=== PATIENT | male | born 1945 | race African-American/Black ===

== ENCOUNTER 2017-12-30 23:06 | Inpatient (IN) | payer MEDICARE, MEDICAID ==
[~2017-12-30] VITALS: Ht 170.2 cm; Wt 66.2 kg
[2017-12-30] MEDS ORDERED: Ipratropium 0.02% Inh Soln 2.5ml UD HHN ONE (23:30)
[2017-12-30] MEDS ORDERED: Albuterol ud Inhalation HHN ONE (23:30)
[2017-12-30] MEDS ORDERED: Solu-MEDROL 125mg Inj IVP ONE (23:30)
[2017-12-30 23:40] VITALS: BP 146/96
[2017-12-30 23:55] LABS: BASOPHILS % (AUTO) 2.6 % (0.0-2.0); EOSINOPHILS % (AUTO) 6.3 % (0.0-3.0); HEMATOCRIT 43.4 % (42.0-52.0); HEMOGLOBIN 13.1 G/DL (14.2-18.0); LYMPHOCYTES % (AUTO) 21.3 % (20.0-45.0); MEAN CORPUSCULAR VOLUME 80 FL (80-99); MONOCYTES % (AUTO) 9.4 % (1.0-10.0); NEUTROPHILS % (AUTO) 60.3 % (45.0-75.0); PLATELET COUNT 163 K/UL (150-450); RED CELL DISTRIBUTION WIDTH 12.6 % (11.6-14.8); WHITE BLOOD COUNT 7.4 K/UL (4.8-10.8)
[2017-12-31] MEDS ORDERED: MULTIVITAMINS1 EAC8 ORAL (00:37)
[2017-12-31] MEDS ORDERED: ABILIFY2 MG ORAL (00:37)
[2017-12-31] MEDS ORDERED: FLEET ENEMA133 ML RECTAL (00:37)
[2017-12-31] MEDS ORDERED: BENZTROPINE ME0.5 MG PO (00:37)
[2017-12-31] MEDS ORDERED: ACETAMINOPHEN325 M1 ORAL (00:37)
[2017-12-31] MEDS ORDERED: LAMICTAL25 MG ORAL (00:37)
[2017-12-31] MEDS ORDERED: MILK OF MA400 MG/51 ORAL (00:37)
[2017-12-31] MEDS ORDERED: CATAPRES0.1 MG ORAL (00:37)
[2017-12-31 00:54] LABS: ANION GAP 4 mmol/L (5-15); BLOOD UREA NITROGEN 15 mg/dL (7-18); CALCIUM 9.1 MG/DL (8.5-10.1); CARBON DIOXIDE 30 MMOL/L (21-32); CHLORIDE 101 MMOL/L (98-107); CREATININE 0.9 MG/DL (0.55-1.30); POTASSIUM 4.7 MMOL/L (3.5-5.1); SODIUM 135 MMOL/L (136-145)
[2017-12-31 01:05] LABS: ALANINE AMINOTRANSFERASE 24 U/L (12-78); ALBUMIN 3.3 G/DL (3.4-5.0); ALBUMIN/GLOBULIN RATIO 0.8 (1.0-2.7); ALKALINE PHOSPHATASE 122 U/L (46-116); ASPARTATE AMINO TRANSFERASE 22 U/L (15-37); BILIRUBIN,TOTAL 0.3 MG/DL (0.2-1.0); CREATINE KINASE 237 U/L (26-308)
[2017-12-31 01:28] LABS: APPEARANCE,URINE CLEAR; BILIRUBIN, URINE NEGATIVE (NEGATIVE); COLOR,URINE PALE YELLOW; GLUCOSE, URINE (UA) NEGATIVE (NEGATIVE); KETONES,URINE NEGATIVE (NEGATIVE); LEUKOCYTE ESTERASE ,URINE 1+ (NEGATIVE); NITRITE,URINE NEGATIVE (NEGATIVE); PH,URINE 7 (4.5-8.0); PROTEIN,URINE NEGATIVE (NEGATIVE); UROBILINOGEN,URINE NORMAL MG/DL (0.0-1.0)
--- NOTE | 2017-12-31 01:34 | Emergency Room Report ---
History of Present Illness General Chief Complaint: Upper Respiratory Illness Source: Patient, Medical Record, EMS Present Illness HPI Patient was sent in for evaluation of lung mass. He is a poor historian. Apparently, due to prior x-rays, a CT guided biopsy is indicated. The patient denies chest pain, back pain, productive cough. He has recent hoarseness and poor appetite, but denies weight loss. No fevers, chills, NVD. Denies calf pain or swelling. Prior smoker. Allergies: Coded Allergies: No Known Allergies (Unverified , 12/30/17) Patient History Past Medical History: see triage record Social History: Denies: smoking - prior Social History Narrative assisted living Reviewed Nursing Documentation: PMH: Agreed; PSxH: Agreed Nursing Documentation-PMH Hx Hypertension: Yes Hx COPD: Yes - malignant neoplasm of unspecified part of lung Review of Systems All Other Systems: limited Physical Exam Vital Signs Date Time Temp Pulse Resp B/P (MAP) Pulse Ox O2 Delivery O2 Flow Rate FiO2 12/30/17 23:07 98.7 70 18 146/96 95 Room Air 98.8 12/30/17 23:45 21 Sp02 EP Interpretation: reviewed, normal General Appearance: no apparent distress, GCS 15 Head: normocephalic, atraumatic Eyes: bilateral eye normal inspection, bilateral eye PERRL ENT: moist mucus membranes, other - hoarseness Neck: supple Respiratory: lungs clear, normal breath sounds, wheezing - minimal end exp Cardiovascular #1: regular rate, rhythm Cardiovascular #2: 2+ radial (R) Gastrointestinal: normal inspection, normal bowel sounds, non tender, no mass, non-distended Musculoskeletal: back normal, gait/station normal, normal range of motion Neurologic: alert, oriented - X2 Psychiatric: mood/affect normal Skin: normal inspection, warm/dry Medical Decision Making Diagnostic Impression: Primary Impression: Mass of left lung Additional Impressions: Bronchospasm Encephalopathy ER Course Patient with h/o lung mass. DDx: cancer, pneumonia, pneumothorax amongst others. Patient in no respiratory distress, however has hoarseness suggesting possible Pancoast tumor with recurrent laryngeal involvement. No Raine's sign. Evaluation with EKG, labs and CXR. As consideration for biopsy, will hold off on CT tonight. Treatment with solu-medrol and breathing treatments. EKG no injury. CXR with large mass MITALI. Labs with normal WBC (eosinophilia). CMP basically unremarkable (slightly low sodium). Improved with breathing treatments. Patient discussed with Dr. Dixon. The patient is admitted to Dr. Cabrera. The plan is for CT-guided lung biopsy tomorrow. The patient pulled out his IV. He is refusing that we start another IV. At this point there is no emergent condition to have an IV started. One should be inserted prior to the biopsy. The patient is tolerating oral meds at this time. According to the assisted living where he is he suffers from confusion at times with h/o schizophrenia. This may necessitate assessment from a director of social work or psychiatry. Laboratory Tests Test 12/30/17 23:30 12/31/17 01:00 White Blood Count 7.4 K/UL (4.8-10.8) Red Blood Count 5.40 M/UL (4.70-6.10) Hemoglobin 13.1 G/DL (14.2-18.0) L Hematocrit 43.4 % (42.0-52.0) Mean Corpuscular Volume 80 FL (80-99) Mean Corpuscular Hemoglobin 24.3 PG (27.0-31.0) L Mean Corpuscular Hemoglobin Concent 30.2 G/DL (32.0-36.0) L Red Cell Distribution Width 12.6 % (11.6-14.8) Platelet Count 163 K/UL (150-450) Mean Platelet Volume 10.0 FL (6.5-10.1) Neutrophils (%) (Auto) 60.3 % (45.0-75.0) Lymphocytes (%) (Auto) 21.3 % (20.0-45.0) Monocytes (%) (Auto) 9.4 % (1.0-10.0) Eosinophils (%) (Auto) 6.3 % (0.0-3.0) H Basophils (%) (Auto) 2.6 % (0.0-2.0) H Prothrombin Time 10.5 SEC (9.30-11.50) Prothrombin Time INR 1.0 (0.9-1.1) PTT 28 SEC (23-33) Sodium Level 135 MMOL/L (136-145) L Potassium Level 4.7 MMOL/L (3.5-5.1) Chloride Level 101 MMOL/L (98-107) Carbon Dioxide Level 30 MMOL/L (21-32) Anion Gap 4 mmol/L (5-15) L Blood Urea Nitrogen 15 mg/dL (7-18) Creatinine 0.9 MG/DL (0.55-1.30) Estimate Glomerular Filtration Rate mL/min (>60) Glucose Level 95 MG/DL (74-106) Lactic Acid Level 0.80 mmol/L (0.66-2.22) Calcium Level 9.1 MG/DL (8.5-10.1) Total Bilirubin 0.3 MG/DL (0.2-1.0) Aspartate Amino Transferase (AST) 22 U/L (15-37) Alanine Aminotransferase (ALT) 24 U/L (12-78) Alkaline Phosphatase 122 U/L (46-116) H Total Creatine Kinase 237 U/L (26-308) Troponin I 0.000 ng/mL (0.000-0.056) Pro-B-Type Natriuretic Peptide 42 pg/mL (0-125) Total Protein 7.6 G/DL (6.4-8.2) Albumin 3.3 G/DL (3.4-5.0) L Globulin 4.3 g/dL Albumin/Globulin Ratio 0.8 (1.0-2.7) L Urine Color Pale yellow Urine Appearance Clear Urine pH 7 (4.5-8.0) Urine Specific [place] 1.010 (1.005-1.035) Urine Protein Negative (NEGATIVE) Urine Glucose (UA) Negative (NEGATIVE) Urine Ketones Negative (NEGATIVE) Urine Occult Blood Negative (NEGATIVE) Urine Nitrite Negative (NEGATIVE) Urine Bilirubin Negative (NEGATIVE) Urine Urobilinogen Normal MG/DL (0.0-1.0) Urine Leukocyte Esterase 1+ (NEGATIVE) H Urine RBC 0-2 /HPF (0 - 0) H Urine WBC 0-2 /HPF (0 - 0) Urine Squamous Epithelial Cells None /LPF (NONE/OCC) Urine Bacteria None /HPF (NONE) EKG Diagnostic Results Rate: normal Rhythm: NSR ST Segments: no acute changes - RBBB Rhythm Strip Diag. Results EP Interpretation: yes Rhythm: NSR, no PVC's, no ectopy Chest X-Ray Diagnostic Results Chest X-Ray Diagnostic Results : Chest X-Ray Ordered: Yes # of Views/Limited/Complete: 1 View Indication: Other Interpretation: no effusion, no pneumothorax, other - MITALI mass Impression: Other Electronically Signed by: Electronically signed by Barry Kim MD Last Vital Signs Date Time Temp Pulse Resp B/P (MAP) Pulse Ox O2 Delivery O2 Flow Rate FiO2 12/31/17 04:00 97.7 78 18 154/98 93 97.7 12/31/17 03:10 Room Air 12/31/17 03:00 21 Status: improved Disposition: ADMITTED INPATIENT Condition: Serious Referrals: NON PHYSICIAN (PCP) Barry Kim M.D. December 31, 2017 01:34
[2017-12-31 02:52] VITALS: BP 159/80
[2017-12-31 04:00] VITALS: BP 154/98
[2017-12-31] MEDS ORDERED: Lidocaine 1% Plain 30 ml INJ PRN (05:15)
[2017-12-31 09:05] VITALS: BP 135/74
--- NOTE | 2017-12-31 11:17 | Diagnostic Imaging Report ---
Indication: Cough Comparison: None A single view chest radiograph was obtained. Findings: There is a confluent density demonstrated within the left upper lobe may be an infiltrate. Correlate clinically. The heart is enlarged. Bones are unremarkable. IMPRESSION: Suspected left upper lobe pneumonia. Mass is not excluded. Patient is scheduled for CT
[2017-12-31 12:00] VITALS: BP 130/70
--- NOTE | 2017-12-31 12:37 | Diagnostic Imaging Report ---
Indication: Chest pain Technique: Continuous helical transaxial imaging of the chest was obtained from the thoracic inlet to the upper abdomen. No intravenous contrast was administered. Coronal 2-D reformats were also obtained. Total Dose length Product (DLP): 649.[address] Dose Index Volume (CTDIvol): 16.95 mGy Comparison: none Findings: There is a 5 cm spiculated mass in the left upper lobe consistent with bronchogenic neoplasm. There is associated left hilar lymphadenopathy. There is a peripheral nodule measuring 1.6 cm within the left lower lobe. There are several small pleural-based nodules as well within the left lower lobe and left upper lobe periphery. There is a small pericardial effusion. No metastatic disease within the right hemithorax appreciated. There is emphysema noted with hyperlucency involving the upper lobes. There are no obvious bone metastases. The visualized part of the liver shows several hypodensities nonspecific. The study was done without intravenous contrast. There is a nodule above the right kidney within the retroperitoneum measuring 2 cm nonspecific. This could be an exophytic cyst involving the kidney. Metastatic disease not excluded. Aorta is calcified. 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 Satellite pulmonary nodules within both the left upper and lower lobe and several pleural-based nodules consistent with metastatic neoplasm. Associated left hilar lymphadenopathy. Hypodensities in the liver nonspecific. Metastatic disease not excluded. Pulmonary emphysema/COPD 2 cm mass in the right suprarenal location probably exophytic renal cyst. Atherosclerotic disease. Small pericardial effusion. The CT scanner at [facility] is accredited by the [employer] and the scans are performed using dose optimization techniques as appropriate to a performed exam including Automatic Exposure control.
--- NOTE | 2017-12-31 15:00 | Consultation ---
History of Present Illness General Date patient seen: December 31, 2017 Chief Complaint: Upper Respiratory Illness Present Illness HPI 72 year old male with hx of psychiatric disease, halfway resident was found to have a lung mass and brought in for further evaluation. Pt has lost his voice. This is typical for pancoat tumor. Allergies: Coded Allergies: No Known Allergies (Unverified , 12/30/17) Medication History Scheduled Aripiprazole* (Abilify*), 2.5 MG ORAL Q12HR, (Reported) Benztropine Mesylate* (Cogentin*), 0.5 MG PO THREE TIMES A DAY, (Reported) Clonidine Hcl* (Catapres*), 0.1 MG ORAL EVERY 8 HOURS, (Reported) Lamotrigine* (Lamictal*), 25 MG ORAL Q12HR, (Reported) Magnesium Hydroxide* (Milk Of Magnesia*), 30 ML ORAL DAILY, (Reported) Multivitamin With Minerals (Multivitamins With Minerals*), 1 TAB ORAL DAILY, ( Reported) Na Phos,M-B/Na Phos,Di-Ba* (Fleet Enema*), 133 ML RECTAL DAILY, (Reported) Scheduled PRN Acetaminophen* (Acetaminophen 325MG Tablet*), 650 MG ORAL Q6H PRN for Fever/ Headache/Mild Pain, (Reported) Patient History Healthcare decision maker Resuscitation status Full Code Advanced Directive on File No Past Medical/Surgical History Past Medical/Surgical History: (1) Mass of left lung Review of Systems All Other Systems: negative except mentioned in HPI Physical Exam General Appearance: WD/WN Lines, tubes and drains: peripheral HEENT: normocephalic Neck: non-tender, normal alignment Respiratory/Chest: chest wall non-tender, lungs clear Breasts: no masses Cardiovascular/Chest: normal rate Abdomen: normal bowel sounds, non tender Last 24 Hour Vital Signs Date Time Temp Pulse Resp B/P (MAP) Pulse Ox O2 Delivery O2 Flow Rate FiO2 12/31/17 09:05 97.6 90 21 135/74 94 97.6 12/31/17 04:00 97.7 78 18 154/98 93 97.7 12/31/17 03:10 18 Room Air 12/31/17 03:00 98.8 78 16 159/80 93 Room Air 21 98.8 12/31/17 02:52 78 16 159/80 93 Room Air 12/30/17 23:57 68 20 100 Room Air 21 12/30/17 23:45 66 16 98 Room Air 21 12/30/17 23:45 66 20 Room Air 21 12/30/17 23:40 70 18 Room Air 12/30/17 23:40 98.8 70 18 146/96 95 Room Air 98.8 12/30/17 23:07 98.7 70 18 146/96 95 Room Air 98.8 Intake and Output 12/30/17 12/31/17 19:00 07:00 # Voids 1 Laboratory Tests Test 12/30/17 23:30 12/31/17 01:00 White Blood Count 7.4 K/UL (4.8-10.8) Red Blood Count 5.40 M/UL (4.70-6.10) Hemoglobin 13.1 G/DL (14.2-18.0) L Hematocrit 43.4 % (42.0-52.0) Mean Corpuscular Volume 80 FL (80-99) Mean Corpuscular Hemoglobin 24.3 PG (27.0-31.0) L Mean Corpuscular Hemoglobin Concent 30.2 G/DL (32.0-36.0) L Red Cell Distribution Width 12.6 % (11.6-14.8) Platelet Count 163 K/UL (150-450) Mean Platelet Volume 10.0 FL (6.5-10.1) Neutrophils (%) (Auto) 60.3 % (45.0-75.0) Lymphocytes (%) (Auto) 21.3 % (20.0-45.0) Monocytes (%) (Auto) 9.4 % (1.0-10.0) Eosinophils (%) (Auto) 6.3 % (0.0-3.0) H Basophils (%) (Auto) 2.6 % (0.0-2.0) H Prothrombin Time 10.5 SEC (9.30-11.50) Prothromb Time International Ratio 1.0 (0.9-1.1) Activated Partial Thromboplast Time 28 SEC (23-33) Sodium Level 135 MMOL/L (136-145) L Potassium Level 4.7 MMOL/L (3.5-5.1) Chloride Level 101 MMOL/L (98-107) Carbon Dioxide Level 30 MMOL/L (21-32) Anion Gap 4 mmol/L (5-15) L Blood Urea Nitrogen 15 mg/dL (7-18) Creatinine 0.9 MG/DL (0.55-1.30) Estimat Glomerular Filtration Rate mL/min (>60) Glucose Level 95 MG/DL (74-106) Lactic Acid Level 0.80 mmol/L (0.66-2.22) Calcium Level 9.1 MG/DL (8.5-10.1) Total Bilirubin 0.3 MG/DL (0.2-1.0) Aspartate Amino Transf (AST/SGOT) 22 U/L (15-37) Alanine Aminotransferase (ALT/SGPT) 24 U/L (12-78) Alkaline Phosphatase 122 U/L (46-116) H Total Creatine Kinase 237 U/L (26-308) Troponin I 0.000 ng/mL (0.000-0.056) Pro-B-Type Natriuretic Peptide 42 pg/mL (0-125) Total Protein 7.6 G/DL (6.4-8.2) Albumin 3.3 G/DL (3.4-5.0) L Globulin 4.3 g/dL Albumin/Globulin Ratio 0.8 (1.0-2.7) L Urine Color Pale yellow Urine Appearance Clear Urine pH 7 (4.5-8.0) Urine Specific [place] 1.010 (1.005-1.035) Urine Protein Negative (NEGATIVE) Urine Glucose (UA) Negative (NEGATIVE) Urine Ketones Negative (NEGATIVE) Urine Occult Blood Negative (NEGATIVE) Urine Nitrite Negative (NEGATIVE) Urine Bilirubin Negative (NEGATIVE) Urine Urobilinogen Normal MG/DL (0.0-1.0) Urine Leukocyte Esterase 1+ (NEGATIVE) H Urine RBC 0-2 /HPF (0 - 0) H Urine WBC 0-2 /HPF (0 - 0) Urine Squamous Epithelial Cells None /LPF (NONE/OCC) Urine Bacteria None /HPF (NONE) Height (Feet): 5 Height (Inches): 7.00 Weight (Pounds): 165 Medications Current Medications Medications (Trade) Dose Ordered Sig/Calixto Route PRN Reason Start Time Stop Time Status Last Admin Dose Admin Acetaminophen (Tylenol) 650 mg Q6H PRN ORAL Mild Pain/Temp > 100.5 12/31/17 07:00 01/30/18 06:59 Lidocaine HCl (Xylocaine 1% 30ml) 30 ml NOW PRN INJ Radiology Procedure 12/31/17 05:15 01/02/18 05:08 Temazepam (Restoril) 15 mg HSPRN PRN ORAL Insomnia 12/31/17 07:00 01/07/18 06:59 Assessment/Plan Problem List: (1) Pancoast tumor ICD Codes: C34.10 - Malignant neoplasm of upper lobe, unspecified bronchus or lung SNOMED: 021611964 (2) Mass of left lung ICD Codes: R91.8 - Other nonspecific abnormal finding of lung field SNOMED: 159121034 Assessment/Plan the lesion is already non-resectable. CT guided biopsy to confirm the diagnosis symptomatic treatment psych evaluation for competency social service evaluation Kenny Cabrera MD December 31, 2017 15:00
[2017-12-31 16:00] VITALS: BP 140/78
--- NOTE | 2017-12-31 18:11 | Cardiology Report ---
APPROVED REPORT EKG Measurement Heart [id number] Normal sinus rhythm Right bundle branch block, plus right ventricular hypertrophy Septal infarct, age undetermined Abnormal ECG
--- NOTE | 2017-12-31 19:10 | History & Physical ---
History and Physical History & Physicial Dictated for Int Med-Dr Son no. [id number] Vicente Rojas MD December 31, 2017 19:10
[2017-12-31 20:14] VITALS: BP 157/94
--- NOTE | 2017-12-31 22:15 | Consultation ---
DATE OF CONSULTATION: 12/31/2017 HEMATOLOGY/ONCOLOGY CONSULTATION CONSULTING PHYSICIAN: José Dixon M.D. REQUESTING PHYSICIAN: Kenny Cabrera M.D. REASON FOR CONSULTATION: Evaluation of lung mass. IDENTIFICATION DATA: Dear Dr. Cabrera: The patient is a pleasant 72-year-old male, who presented this morning to the [facility]. The patient is confused at this time. Unable to obtain any medical history from him. He is waxing and waning in regard to his speech. This is the first admission to [facility]. Review of the record reveals he has history of psychiatric disorder and I was called by Dr. Barry Kim for evaluation of lung mass. He has also past medical history significant for hemoptysis, COPD, unspecified dementia, and muscle weakness. His primary care physician is and the patient presented from [facility] facility. Otherwise at this time, the patient has been admitted for evaluation of lung mass and Oncology service was consulted for evaluation and treatment. PAST MEDICAL HISTORY: Major depressive disorder, delusional disorder, schizophrenia, anemia, generalized anxiety disorder, hypertension, and unspecified dementia. PAST SURGICAL HISTORY: None noted. FAMILY HISTORY: Noncontributory. SOCIAL HISTORY: No alcohol or tobacco use, however, he does have smoking use in the past. REVIEW OF SYSTEMS: Unable to obtain given mental status. PHYSICAL EXAMINATION: VITAL SIGNS: Reviewed, currently stable. GENERAL: The patient is refusing labs, refusing placement of IV, is ambulatory. SKIN: No rashes, bumps, or itching. PULMONARY: Decreased breath sounds bilaterally with decreased effort. ABDOMEN: Soft, nontender, and nondistended. EXTREMITIES: No cyanosis, clubbing, or edema. NEUROLOGIC: Otherwise he is confused, but he is able to walk with steady gait. LABORATORY DATA: WBC 7.4, hemoglobin 13.1, hematocrit 43, and platelet 162,000. BUN of 15 and creatinine 0.9. Alkaline phosphatase 122. Albumin of 3.3. INR of 1. Urinalysis reviewed, otherwise negative. ASSESSMENT AND RECOMMENDATION: 1. Left upper lobe pneumonia versus mass. Consider to obtain CAT scan, however, the patient at this time has been refusing evaluation and workup. In addition, the patient is conserved. Therefore, we will need to obtain permission from public guardian and at this time, it appears that this is not emergent and therefore, this can potentially be held off unless able to get consent. 2. Anemia due to underlying chronic disease. Continue to closely monitor. 3. Coagulopathy, very mild at this time, potentially secondary to decreased p.o. intake. 4. 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 5. Dementia, unchanged at this time. Again, the patient is conserved. We will need to obtain further records in addition to permission from the patient's public guardian to obtain any further imaging and/or CT-guided biopsy. I appreciate the consultation by Dr. Cabrera. José Dixon M.D. DR: KARLY JOB#: [id number] CC:
--- NOTE | 2018-01-01 02:30 | History and Physical Report ---
DATE OF ADMISSION: 12/31/2017 CHIEF COMPLAINT: The patient is a 72-year-old male, who presents with a chief complaint of needing procedures for left upper lobe lung mass. HISTORY OF PRESENT ILLNESS: The patient was diagnosed with left upper lobe lung mass. The patient is followed as an outpatient by Dr. Song Dixon. The patient was sent to the emergency room for PET scan for staging. The patient himself has schizophrenia. The patient is an unreliable historian. The patient presents with a chief complaint of left upper lung mass for biopsy and workup. PAST MEDICAL HISTORY: Significant for: 1. Chronic obstructive pulmonary disease. 2. Hypertension. 3. Schizophrenia. 4. Iron-deficiency anemia. 5. Left upper lobe lung mass as above. PAST SURGICAL HISTORY: The patient denies. CURRENT MEDICATIONS: 1. Clonidine 0.1 mg p.o. q.8 hours p.r.n. 2. Abilify 2.5 mg p.o. twice daily. 3. Lamictal 25 mg one tablet p.o. twice daily. 4. Multivitamin p.o. daily. 5. Tylenol 650 mg p.o. q.6 h. p.r.n. ALLERGIES: No known drug allergies. SOCIAL HISTORY: The patient was previously resident of [facility]. The patient denies current tobacco or alcohol use. REVIEW OF SYSTEMS: Unable to assess secondary to the patient's mental status. PHYSICAL EXAMINATION: VITAL SIGNS: Temperature 98.8, respirations 16, pulse 78, and blood pressure 159/80. GENERAL: The patient is a well-developed and well-nourished male, in no apparent distress. HEENT: Eyes, pupils equal and responsive to light and accommodation. Extraocular movements are intact. NECK: Supple without lymphadenopathy. CHEST: Decreased breath sounds in the left upper lobe, but otherwise clear to auscultation without wheezes or rales. CARDIOVASCULAR: Regular rate. S1 and S2 are normal without murmurs, rubs, or gallops. ABDOMEN: Soft, nontender, and nondistended. Positive bowel sounds. No evidence of hepatosplenomegaly. Currently, no rebound or guarding noted. EXTREMITIES: Negative for clubbing, cyanosis, or edema. RECTAL/GENITAL: Refused. NEUROLOGIC: Cranial nerves II through XII are grossly intact without focal deficits. Motor strength is 5/5 bilaterally. Deep tendon reflexes are 2+ plantar. LABORATORY AND DIAGNOSTIC STUDIES: WBC 7.4, hemoglobin 13.1, hematocrit 43.4, and platelets 162,000. Sodium 135, potassium 4.7, chloride 101, CO2 of 30, BUN 15, creatinine 0.9, and glucose 95. CT scan of the chest showed a 5 to 6 cm mass in the left upper lobe of the lung with possible metastases to the liver. ASSESSMENT: This is a 72-year-old male. 1. Left upper lobe lung mass. 2. Chronic obstructive pulmonary disease. 3. Hypertension. 4. Schizophrenia. 5. Iron-deficiency anemia. TREATMENT: 1. Left upper lobe lung mass. An Oncology consultation has been obtained with Dr. José Dixon. We will follow recommendations of Oncology. The patient will require a PET scan for staging. The patient will also require CT-guided biopsy. We will follow recommendations of Oncology. 2. Chronic obstructive pulmonary disease. The patient denies current tobacco use. The patient will be offered albuterol p.r.n. for wheezing. 3. Hypertension. The patient will be continued on clonidine p.r.n. for systolic greater than 150 or diastolic greater than 100. 4. Schizophrenia. A psychiatric consultation has been obtained with Dr. Tolbert. Continue Lamictal and Abilify as above. 5. Iron-deficiency anemia as above. A Hematology/Oncology consultation has been obtained with Dr. Dixon. Vicenet Rojas M.D. DR: LAURIE JOB#: [id number] CC:
--- NOTE | 2018-01-01 13:30 | Consultation ---
History of Present Illness General Date patient seen: January 01, 2018 Chief Complaint: Upper Respiratory Illness Present Illness HPI 72-year-old male, who presents with a chief complaint of needing procedures for left upper lobe lung mass. the pt is disorganized and unable to provide hx/the pt is delusional and unable to process the info given to him in regards to his medical condition Allergies: Coded Allergies: No Known Allergies (Unverified , 12/30/17) Medication History Scheduled Aripiprazole* (Abilify*), 2.5 MG ORAL Q12HR, (Reported) Benztropine Mesylate* (Cogentin*), 0.5 MG PO THREE TIMES A DAY, (Reported) Clonidine Hcl* (Catapres*), 0.1 MG ORAL EVERY 8 HOURS, (Reported) Lamotrigine* (Lamictal*), 25 MG ORAL Q12HR, (Reported) Magnesium Hydroxide* (Milk Of Magnesia*), 30 ML ORAL DAILY, (Reported) Multivitamin With Minerals (Multivitamins With Minerals*), 1 TAB ORAL DAILY, ( Reported) Na Phos,M-B/Na Phos,Di-Ba* (Fleet Enema*), 133 ML RECTAL DAILY, (Reported) Scheduled PRN Acetaminophen* (Acetaminophen 325MG Tablet*), 650 MG ORAL Q6H PRN for Fever/ Headache/Mild Pain, (Reported) Patient History Limited by: medical condition History Provided By: Patient, Medical Record, PMD Healthcare decision maker Resuscitation status Full Code Advanced Directive on File No Past Medical/Surgical History Past Medical/Surgical History: (1) Pancoast tumor (2) Schizophrenia (3) Encephalopathy (4) Bronchospasm (5) Mass of left lung Review of Systems Psychiatric: Reports: prior hx, anxiety, depressed feelings, emotional problems , hallucinations Physical Exam General Appearance: WD/WN, no apparent distress, alert Neurologic: alert, responsive, disoriented, depressed affect Last 24 Hour Vital Signs Date Time Temp Pulse Resp B/P (MAP) Pulse Ox O2 Delivery O2 Flow Rate FiO2 12/31/17 20:14 97.7 79 20 157/94 95 Room Air 97.7 12/31/17 16:00 98.0 87 20 140/78 96 98.0 12/31/17 16:00 Room Air Intake and Output 12/31/17 01/01/18 19:00 07:00 Intake Total 800 ml Balance 800 ml Intake Oral 800 ml # Voids 2 2 # Bowel Movements 1 Height (Feet): 5 Height (Inches): 7.00 Weight (Pounds): 165 Medications Current Medications Medications (Trade) Dose Ordered Sig/Calixto Route PRN Reason Start Time Stop Time Status Last Admin Dose Admin Acetaminophen (Tylenol) 650 mg Q6H PRN ORAL Mild Pain/Temp > 100.5 12/31/17 07:00 01/30/18 06:59 Aripiprazole (Abilify) 5 mg DAILY ORAL 01/01/18 09:00 01/31/18 08:59 01/01/18 09:42 Lamotrigine (LaMICtal) 25 mg BID ORAL 01/01/18 09:00 01/31/18 08:59 01/01/18 09:42 Lidocaine HCl (Xylocaine 1% 30ml) 30 ml NOW PRN INJ Radiology Procedure 12/31/17 05:15 01/02/18 05:08 Temazepam (Restoril) 15 mg HSPRN PRN ORAL Insomnia 12/31/17 07:00 01/07/18 06:59 Assessment/Plan Assessment/Plan schizophrenia -risperdal 2mg qhs -provide the pt with sam/Raymon Smith M.D. January 01, 2018 13:30
--- NOTE | 2018-01-01 13:52 | General Progress Note ---
Assessment/Plan Assessment/Plan ASSESSMENT AND RECOMMENDATION: 1. 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 Satellite pulmonary nodules within both the left upper and lower lobe and several pleural-based nodules consistent with metastatic neoplasm. Associated left hilar lymphadenopathy. Hypodensities in the liver nonspecific. Metastatic disease not excluded. --> At this time, this likely demonstrates lung cancer until proven otherwise, the patient is conserved --> Biopsy has been ordered to prove diagnosis, but again very typical pattern for lung cancer, likely has stage IV disease --> Further evaluation for biopsy if primary/consultants/conservator/patient agreeable --> Can discuss with conservator as needed 2. Anemia due to underlying chronic disease. Continue to closely monitor. 3. Coagulopathy, very mild at this time, potentially secondary to decreased p.o. intake. 4. 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 5. Dementia, unchanged at this time. Again, the patient is conserved. Subjective Constitutional: Denies: no symptoms, chills, diaphoresis, fever, malaise, weakness, other HEENT: Denies: no symptoms, eye pain, blurred vision, tearing, double vision, ear pain, ear discharge, nose pain, nose congestion, throat pain, throat swelling, mouth pain, mouth swelling, other Cardiovascular: Denies: no symptoms, chest pain, edema, irregular heart rate, lightheadedness, palpitations, syncope, other Respiratory: Denies: no symptoms, cough, orthopnea, shortness of breath, SOB with excertion, SOB at rest, sputum, stridor, wheezing, other Gastrointestinal/Abdominal: Denies: no symptoms, abdomen distended, abdominal pain, black stools, tarry stools, blood in stool, constipated, diarrhea, difficulty swallowing, nausea, poor appetite, poor fluid intake, rectal bleeding , vomiting, other Genitourinary: Denies: no symptoms, burning, discharge, frequency, flank pain, hematuria, incontinence, pain, urgency, other Neurologic/Psychiatric: Denies: no symptoms, anxiety, depressed, emotional problems, headache, numbness, paresthesia, pre-existing deficit, seizure, tingling, tremors, weakness, other Endocrine: Denies: no symptoms, excessive sweating, flushing, intolerance to cold, intolerance to heat, increased hunger, increased thirst, increased urine, unexplained weight gain, unexplained weight loss, other Hematologic/Lymphatic: Denies: no symptoms, anemia, easy bleeding, easy bruising, other Allergies: Coded Allergies: No Known Allergies (Unverified , 12/30/17) Subjective confused this am, able to speak however by end of conversation speaking of delusions Objective Last 24 Hour Vital Signs Date Time Temp Pulse Resp B/P (MAP) Pulse Ox O2 Delivery O2 Flow Rate FiO2 12/31/17 20:14 97.7 79 20 157/94 95 Room Air 97.7 12/31/17 16:00 98.0 87 20 140/78 96 98.0 12/31/17 16:00 Room Air Intake and Output 12/31/17 01/01/18 19:00 07:00 Intake Total 800 ml Balance 800 ml Intake Oral 800 ml # Voids 2 2 # Bowel Movements 1 Height (Feet): 5 Height (Inches): 7.00 Weight (Pounds): 165 General Appearance: no apparent distress EENT: TMs normal Neck: supple Cardiovascular: regular rhythm Respiratory/Chest: lungs clear Abdomen: soft Extremities: non-tender Edema: 1+ Leg (L), 1+ Leg (R) Neurologic: no motor/sensory deficits Skin: warm/dry José Dixon MD January 01, 2018 13:52
--- NOTE | 2018-01-01 15:40 | Pulmonology Progress Note ---
Assessment/Plan Problems: (1) Pancoast tumor (2) Mass of left lung Assessment/Plan awaiting consent for biopsy titrate fio2 check tumor markers psych evaluation social service f/u Subjective ROS Limited/Unobtainable: Yes Allergies: Coded Allergies: No Known Allergies (Unverified , 12/30/17) Objective Last 24 Hour Vital Signs Date Time Temp Pulse Resp B/P (MAP) Pulse Ox O2 Delivery O2 Flow Rate FiO2 12/31/17 20:14 97.7 79 20 157/94 95 Room Air 97.7 12/31/17 16:00 98.0 87 20 140/78 96 98.0 12/31/17 16:00 Room Air Intake and Output 12/31/17 01/01/18 19:00 07:00 Intake Total 800 ml Balance 800 ml Intake Oral 800 ml # Voids 2 2 # Bowel Movements 1 General Appearance: WD/WN HEENT: normocephalic, atraumatic, anicteric Respiratory/Chest: chest wall non-tender, normal breath sounds Cardiovascular: normal peripheral pulses, normal rate Abdomen: normal bowel sounds, soft, non tender Genitourinary: normal external genitalia Extremities: no clubbing Skin: no rash Microbiology Date/Time Source Procedure Growth Status 12/30/17 23:40 Blood Blood Culture - Preliminary NO GROWTH AFTER 24 HOURS Resulted 12/30/17 23:35 Blood Blood Culture - Preliminary NO GROWTH AFTER 24 HOURS Resulted Current Medications Medications (Trade) Dose Ordered Sig/Calixto Route PRN Reason Start Time Stop Time Status Last Admin Dose Admin Acetaminophen (Tylenol) 650 mg Q6H PRN ORAL Mild Pain/Temp > 100.5 12/31/17 07:00 01/30/18 06:59 Lamotrigine (LaMICtal) 25 mg BID ORAL 01/01/18 09:00 01/31/18 08:59 01/01/18 09:42 Lidocaine HCl (Xylocaine 1% 30ml) 30 ml NOW PRN INJ Radiology Procedure 12/31/17 05:15 01/02/18 05:08 Risperidone (RisperDAL) 2 mg BEDTIME ORAL 01/01/18 21:00 01/31/18 20:59 Temazepam (Restoril) 15 mg HSPRN PRN ORAL Insomnia 12/31/17 07:00 01/07/18 06:59 Kenny Cabrera MD January 01, 2018 15:40
--- NOTE | 2018-01-01 17:30 | Internal Med Progress Note ---
Subjective Date of Service: January 01, 2018 Physician Name Vicente Rojas Attending Physician Antoni Son MD Current Medications Medications (Trade) Dose Ordered Sig/Calixto Route PRN Reason Start Time Stop Time Status Last Admin Dose Admin Acetaminophen (Tylenol) 650 mg Q6H PRN ORAL Mild Pain/Temp > 100.5 12/31/17 07:00 01/30/18 06:59 Lamotrigine (LaMICtal) 25 mg BID ORAL 01/01/18 09:00 01/31/18 08:59 01/01/18 09:42 Lidocaine HCl (Xylocaine 1% 30ml) 30 ml NOW PRN INJ Radiology Procedure 12/31/17 05:15 01/02/18 05:08 Risperidone (RisperDAL) 2 mg BEDTIME ORAL 01/01/18 21:00 01/31/18 20:59 Temazepam (Restoril) 15 mg HSPRN PRN ORAL Insomnia 12/31/17 07:00 01/07/18 06:59 Allergies: Coded Allergies: No Known Allergies (Unverified , 12/30/17) ROS Limited/Unobtainable: No Constitutional: Reports: no symptoms HEENT: Reports: no symptoms Cardiovascular: Reports: no symptoms Respiratory: Reports: shortness of breath Gastrointestinal/Abdominal: Reports: no symptoms Genitourinary: Reports: no symptoms Neurologic/Psychiatric: Reports: no symptoms Subjective 69 YO M admitted with dyspnea. Now Left upper lung mass. Cover for Int Med-Dr Son. Await biopsy of lung mass Objective Last Vital Signs Date Time Temp Pulse Resp B/P (MAP) Pulse Ox O2 Delivery O2 Flow Rate FiO2 12/31/17 20:14 97.7 79 20 157/94 95 Room Air 97.7 12/31/17 03:00 21 General Appearance: WD/WN, no apparent distress, alert EENT: PERRL/EOMI, normal ENT inspection Neck: non-tender, normal alignment, supple, normal inspection Cardiovascular: normal peripheral pulses, normal rate, regular rhythm, no gallop/murmur, no JVD Respiratory/Chest: chest wall non-tender, respiratory distress, crackles/rales Abdomen: normal bowel sounds, non tender, soft, no organomegaly, no mass Extremities: normal range of motion, non-tender Neurologic: councilperson II-XII grossly normal, no motor/sensory deficits Skin: normal pigmentation, warm/dry Microbiology Date/Time Source Procedure Growth Status 12/30/17 23:40 Blood Blood Culture - Preliminary NO GROWTH AFTER 24 HOURS Resulted 12/30/17 23:35 Blood Blood Culture - Preliminary NO GROWTH AFTER 24 HOURS Resulted Intake and Output 12/31/17 01/01/18 19:00 07:00 Intake Total 800 ml Balance 800 ml Intake Oral 800 ml # Voids 2 2 # Bowel Movements 1 Assessment/Plan Problem List: (1) COPD (chronic obstructive pulmonary disease) (2) HTN (hypertension) (3) Anemia, iron deficiency Assessment & Plan: Stable hemoglobin (4) Schizophrenia Assessment & Plan: Continue risperdal and lamictal per psych. D/C abilify (5) Mass of left lung Assessment & Plan: Await biopsy, however patient refused CT guided biopsy. Await conservator for consent. See onc note. Status: not improved Vicente Rojas MD January 01, 2018 17:30
[2018-01-01 21:00] VITALS: BP 132/75
--- NOTE | 2018-01-01 23:59 | General Progress Note ---
Assessment/Plan Assessment/Plan Disregard note, Refer to earlier note. Subjective Allergies: Coded Allergies: No Known Allergies (Unverified , 12/30/17) Objective Last 24 Hour Vital Signs Date Time Temp Pulse Resp B/P (MAP) Pulse Ox O2 Delivery O2 Flow Rate FiO2 01/01/18 21:00 97.7 67 19 132/75 95 97.7 Intake and Output 12/31/17 01/01/18 19:00 07:00 Intake Total 800 ml Balance 800 ml Intake Oral 800 ml # Voids 2 2 # Bowel Movements 1 Height (Feet): 5 Height (Inches): 7.00 Weight (Pounds): 165 José Dixon MD January 01, 2018 23:59
[2018-01-02] VITALS (7 sets, daily range): BP systolic 136–163; BP diastolic 80–99
--- NOTE | 2018-01-02 15:17 | Internal Med Progress Note ---
Subjective Date of Service: January 02, 2018 Physician Name Vicente Rojas Attending Physician Antoni Son MD Current Medications Medications (Trade) Dose Ordered Sig/Calixto Route PRN Reason Start Time Stop Time Status Last Admin Dose Admin Acetaminophen (Tylenol) 650 mg Q6H PRN ORAL Mild Pain/Temp > 100.5 01/02/18 10:45 02/01/18 10:44 Lamotrigine (LaMICtal) 25 mg Q12HR ORAL 01/02/18 21:00 02/01/18 20:59 Risperidone (RisperDAL) 2 mg BEDTIME ORAL 01/02/18 21:00 02/01/18 20:59 Temazepam (Restoril) 15 mg HSPRN PRN ORAL Insomnia 01/02/18 21:00 01/09/18 20:59 Allergies: Coded Allergies: No Known Allergies (Unverified , 12/30/17) ROS Limited/Unobtainable: No Constitutional: Reports: no symptoms HEENT: Reports: no symptoms Cardiovascular: Reports: no symptoms Respiratory: Reports: shortness of breath Gastrointestinal/Abdominal: Reports: no symptoms Genitourinary: Reports: no symptoms Neurologic/Psychiatric: Reports: no symptoms Subjective 69 YO M admitted with dyspnea. Now Left upper lung mass. Cover for Int Med-Dr Son. Await biopsy of lung mass Objective Last Vital Signs Date Time Temp Pulse Resp B/P (MAP) Pulse Ox O2 Delivery O2 Flow Rate FiO2 01/02/18 11:46 98.0 70 20 156/86 98 98.0 01/02/18 04:00 Room Air 12/31/17 03:00 21 Microbiology Date/Time Source Procedure Growth Status 12/30/17 23:40 Blood Blood Culture - Preliminary NO GROWTH AFTER 48 HOURS Resulted 12/30/17 23:35 Blood Blood Culture - Preliminary NO GROWTH AFTER 48 HOURS Resulted 12/31/17 02:45 Nasal Nares MRSA Culture - Final NO METHICILLIN RESISTANT STAPH AUREUS... Complete Intake and Output 01/01/18 01/02/18 19:00 07:00 Intake Total 960 ml 600 ml Output Total 600 ml 700 ml Balance 360 ml -100 ml Intake Oral 960 ml 600 ml Output Urine Total 600 ml 700 ml Objective General Appearance: WD/WN, no apparent distress, alert EENT: PERRL/EOMI, normal ENT inspection Neck: non-tender, normal alignment, supple, normal inspection Cardiovascular: normal peripheral pulses, normal rate, regular rhythm, no gallop/murmur, no JVD Respiratory/Chest: chest wall non-tender, respiratory distress, crackles/rales Abdomen: normal bowel sounds, non tender, soft, no organomegaly, no mass Extremities: normal range of motion, non-tender 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 D/C abilify (5) Mass of left lung Assessment & Plan: Await biopsy, however patient refused CT guided biopsy. Await conservator for consent. See onc note. Status: not improved Vicente Rojas MD January 02, 2018 15:17
--- NOTE | 2018-01-02 22:14 | Pulmonology Progress Note ---
Assessment/Plan Problems: (1) Pancoast tumor (2) Mass of left lung Assessment/Plan no new complains awaiting consent for biopsy titrate fio2 check tumor markers psych evaluation social service f/u Subjective ROS Limited/Unobtainable: No Constitutional: Reports: no symptoms HEENT: Repors: no symptoms Respiratory: Reports: no symptoms Allergies: Coded Allergies: No Known Allergies (Unverified , 12/30/17) Objective Last 24 Hour Vital Signs Date Time Temp Pulse Resp B/P (MAP) Pulse Ox O2 Delivery O2 Flow Rate FiO2 01/02/18 20:00 97.5 72 20 162/99 98 97.5 01/02/18 16:00 Room Air 01/02/18 15:35 98.4 74 20 142/82 98 98.4 01/02/18 12:00 Room Air 01/02/18 11:46 98.0 70 20 156/86 98 98.0 01/02/18 08:38 80 136/80 01/02/18 08:13 Room Air 01/02/18 08:13 98.2 67 20 163/97 98 98.2 01/02/18 04:00 97.5 65 20 143/96 97 97.5 01/02/18 04:00 Room Air 01/02/18 00:00 97.7 62 21 144/88 97 97.7 01/02/18 00:00 Room Air Intake and Output 01/01/18 01/02/18 19:00 07:00 Intake Total 960 ml 600 ml Output Total 600 ml 700 ml Balance 360 ml -100 ml Intake Oral 960 ml 600 ml Output Urine Total 600 ml 700 ml General Appearance: WD/WN HEENT: normocephalic Respiratory/Chest: chest wall non-tender, lungs clear Cardiovascular: normal peripheral pulses, normal rate Abdomen: normal bowel sounds, soft, non tender Genitourinary: normal external genitalia Extremities: no cyanosis Skin: no rash Microbiology Date/Time Source Procedure Growth Status 12/30/17 23:40 Blood Blood Culture - Preliminary NO GROWTH AFTER 48 HOURS Resulted 12/30/17 23:35 Blood Blood Culture - Preliminary NO GROWTH AFTER 48 HOURS Resulted 12/31/17 02:45 Nasal Nares MRSA Culture - Final NO METHICILLIN RESISTANT STAPH AUREUS... Complete Current Medications Medications (Trade) Dose Ordered Sig/Calixto Route PRN Reason Start Time Stop Time Status Last Admin Dose Admin Acetaminophen (Tylenol) 650 mg Q6H PRN ORAL Mild Pain/Temp > 100.5 01/02/18 10:45 02/01/18 10:44 Clonidine HCl (Catapres Tab) 0.1 mg Q6HR PRN ORAL For High Blood Pressure 01/02/18 21:00 02/01/18 20:59 Lamotrigine (LaMICtal) 25 mg Q12HR ORAL 01/02/18 21:00 02/01/18 20:59 01/02/18 20:11 Risperidone (RisperDAL) 2 mg BEDTIME ORAL 01/02/18 21:00 02/01/18 20:59 01/02/18 20:11 Temazepam (Restoril) 15 mg HSPRN PRN ORAL Insomnia 01/02/18 21:00 01/09/18 20:59 Kenny Cabrera MD January 02, 2018 22:14
[2018-01-03] VITALS: BP 139/79
[2018-01-03 04:43] VITALS: BP 140/74
--- NOTE | 2018-01-03 05:57 | General Progress Note ---
Assessment/Plan Assessment/Plan ASSESSMENT AND RECOMMENDATION: 1. 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 Satellite pulmonary nodules within both the left upper and lower lobe and several pleural-based nodules consistent with metastatic neoplasm. Associated left hilar lymphadenopathy. Hypodensities in the liver nonspecific. Metastatic disease not excluded. --> At this time, this likely demonstrates lung cancer until proven otherwise, the patient is conserved --> Biopsy has been ordered to prove diagnosis, but again very typical pattern for lung cancer, likely has stage IV disease --> Further evaluation for biopsy if primary/consultants/conservator/patient are agreeable --> Can discuss with conservator as needed 2. Anemia due to underlying chronic disease. Continue to closely monitor. --> hgb goal >7 3. Coagulopathy, very mild at this time, potentially secondary to decreased p.o. intake. 4. 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 5. Dementia, unchanged at this time. Again, the patient is conserved. Subjective Date patient seen: January 02, 2018 Constitutional: Denies: no symptoms, chills, diaphoresis, fever, malaise, weakness, other HEENT: Denies: no symptoms, eye pain, blurred vision, tearing, double vision, ear pain, ear discharge, nose pain, nose congestion, throat pain, throat swelling, mouth pain, mouth swelling, other Cardiovascular: Denies: no symptoms, chest pain, edema, irregular heart rate, lightheadedness, palpitations, syncope, other Respiratory: Denies: no symptoms, cough, orthopnea, shortness of breath, SOB with excertion, SOB at rest, sputum, stridor, wheezing, other Gastrointestinal/Abdominal: Denies: no symptoms, abdomen distended, abdominal pain, black stools, tarry stools, blood in stool, constipated, diarrhea, difficulty swallowing, nausea, poor appetite, poor fluid intake, rectal bleeding , vomiting, other Genitourinary: Denies: no symptoms, burning, discharge, frequency, flank pain, hematuria, incontinence, pain, urgency, other Neurologic/Psychiatric: Denies: no symptoms, anxiety, depressed, emotional problems, headache, numbness, paresthesia, pre-existing deficit, seizure, tingling, tremors, weakness, other Endocrine: Denies: no symptoms, excessive sweating, flushing, intolerance to cold, intolerance to heat, increased hunger, increased thirst, increased urine, unexplained weight gain, unexplained weight loss, other Hematologic/Lymphatic: Denies: no symptoms, anemia, easy bleeding, easy bruising, other Allergies: Coded Allergies: No Known Allergies (Unverified , 12/30/17) Subjective has refused ct guided bx, conservator to call back Objective Last 24 Hour Vital Signs Date Time Temp Pulse Resp B/P (MAP) Pulse Ox O2 Delivery O2 Flow Rate FiO2 01/03/18 04:43 97.9 77 19 140/74 98 97.9 01/03/18 00:00 98.1 71 18 139/79 94 98.1 01/02/18 20:00 97.5 72 20 162/99 98 97.5 01/02/18 16:00 Room Air 01/02/18 15:35 98.4 74 20 142/82 98 98.4 01/02/18 12:00 Room Air 01/02/18 11:46 98.0 70 20 156/86 98 98.0 01/02/18 08:38 80 136/80 01/02/18 08:13 Room Air 01/02/18 08:13 98.2 67 20 163/97 98 98.2 Intake and Output 01/02/18 01/03/18 19:00 07:00 Intake Total 1080 ml Output Total 1000 ml Balance 80 ml Intake Oral 1080 ml Output Urine Total 1000 ml Height (Feet): 5 Height (Inches): 7.00 Weight (Pounds): 146 General Appearance: alert EENT: PERRL/EOMI Neck: supple Cardiovascular: regular rhythm Respiratory/Chest: lungs clear Abdomen: non tender Extremities: non-tender Edema: 1+ Leg (L), 1+ Leg (R) Neurologic: no motor/sensory deficits Skin: warm/dry José Dixon MD January 03, 2018 05:57
[2018-01-03 08:00] VITALS: BP 130/92
[2018-01-03 12:00] VITALS: BP 147/79
--- NOTE | 2018-01-03 13:26 | Internal Med Progress Note ---
Subjective Date of Service: January 03, 2018 Physician Name Vicente Rojas Attending Physician Antoni Son MD Current Medications Medications (Trade) Dose Ordered Sig/Calixto Route PRN Reason Start Time Stop Time Status Last Admin Dose Admin Acetaminophen (Tylenol) 650 mg Q6H PRN ORAL Mild Pain/Temp > 100.5 01/02/18 10:45 02/01/18 10:44 01/03/18 08:21 Clonidine HCl (Catapres Tab) 0.1 mg Q6HR PRN ORAL For High Blood Pressure 01/02/18 21:00 02/01/18 20:59 Lamotrigine (LaMICtal) 25 mg Q12HR ORAL 01/02/18 21:00 02/01/18 20:59 01/03/18 08:19 Risperidone (RisperDAL) 2 mg BEDTIME ORAL 01/02/18 21:00 02/01/18 20:59 01/02/18 20:11 Temazepam (Restoril) 15 mg HSPRN PRN ORAL Insomnia 01/02/18 21:00 01/09/18 20:59 Allergies: Coded Allergies: No Known Allergies (Unverified , 12/30/17) ROS Limited/Unobtainable: No Constitutional: Reports: no symptoms HEENT: Reports: no symptoms Cardiovascular: Reports: no symptoms Respiratory: Reports: shortness of breath Gastrointestinal/Abdominal: Reports: no symptoms Genitourinary: Reports: no symptoms Neurologic/Psychiatric: Reports: no symptoms Subjective 69 YO M admitted with dyspnea. Now Left upper lung mass. Cover for Int Med-Dr Son. Await biopsy of lung mass Objective Last Vital Signs Date Time Temp Pulse Resp B/P (MAP) Pulse Ox O2 Delivery O2 Flow Rate FiO2 01/03/18 12:00 98.1 67 19 147/79 94 98.1 01/02/18 16:00 Room Air 12/31/17 03:00 21 Intake and Output 01/02/18 01/03/18 19:00 07:00 Intake Total 1080 ml Output Total 1000 ml 1150 ml Balance 80 ml -1150 ml Intake Oral 1080 ml Output Urine Total 1000 ml 1150 ml Objective General Appearance: WD/WN, no apparent distress, alert EENT: PERRL/EOMI, normal ENT inspection Neck: non-tender, normal alignment, supple, normal inspection Cardiovascular: normal peripheral pulses, normal rate, regular rhythm, no gallop/murmur, no JVD Respiratory/Chest: chest wall non-tender, respiratory distress, crackles/rales Abdomen: normal bowel sounds, non tender, soft, no organomegaly, no mass Extremities: normal range of motion, non-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 D/C abilify (5) Mass of left lung Assessment & Plan: Await biopsy, however patient refused CT guided biopsy. Await conservator for consent. See onc note. Status: stable Vicente Rojas MD January 03, 2018 13:26
--- NOTE | 2018-01-03 14:07 | General Progress Note ---
Assessment/Plan Assessment/Plan ASSESSMENT AND RECOMMENDATION: 1. 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 Satellite pulmonary nodules within both the left upper and lower lobe and several pleural-based nodules consistent with metastatic neoplasm. Associated left hilar lymphadenopathy. Hypodensities in the liver nonspecific. Metastatic disease not excluded. --> At this time, this likely demonstrates lung cancer until proven otherwise, the patient is conserved --> Biopsy has been ordered to prove diagnosis, but again very typical pattern for lung cancer, likely has stage IV disease --> Further evaluation for biopsy if primary/consultants/conservator/patient are agreeable --> Can discuss with conservator as needed 2. Anemia due to underlying chronic disease. Continue to closely monitor. --> hgb goal >7 3. Coagulopathy, very mild at this time, potentially secondary to decreased p.o. intake. 4. 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 5. Dementia, unchanged at this time. Again, the patient is conserved. Subjective Constitutional: Denies: no symptoms, chills, diaphoresis, fever, malaise, weakness, other HEENT: Denies: no symptoms, eye pain, blurred vision, tearing, double vision, ear pain, ear discharge, nose pain, nose congestion, throat pain, throat swelling, mouth pain, mouth swelling, other Cardiovascular: Denies: no symptoms, chest pain, edema, irregular heart rate, lightheadedness, palpitations, syncope, other Respiratory: Denies: no symptoms, cough, orthopnea, shortness of breath, SOB with excertion, SOB at rest, sputum, stridor, wheezing, other Gastrointestinal/Abdominal: Denies: no symptoms, abdomen distended, abdominal pain, black stools, tarry stools, blood in stool, constipated, diarrhea, difficulty swallowing, nausea, poor appetite, poor fluid intake, rectal bleeding , vomiting, other Genitourinary: Denies: no symptoms, burning, discharge, frequency, flank pain, hematuria, incontinence, pain, urgency, other Neurologic/Psychiatric: Denies: no symptoms, anxiety, depressed, emotional problems, headache, numbness, paresthesia, pre-existing deficit, seizure, tingling, tremors, weakness, other Endocrine: Denies: no symptoms, excessive sweating, flushing, intolerance to cold, intolerance to heat, increased hunger, increased thirst, increased urine, unexplained weight gain, unexplained weight loss, other Hematologic/Lymphatic: Denies: no symptoms, anemia, easy bleeding, easy bruising, other Allergies: Coded Allergies: No Known Allergies (Unverified , 12/30/17) Subjective has refused ct guided bx, have discussed with conservator as well Objective Last 24 Hour Vital Signs Date Time Temp Pulse Resp B/P (MAP) Pulse Ox O2 Delivery O2 Flow Rate FiO2 01/03/18 12:00 98.1 67 19 147/79 94 98.1 01/03/18 08:00 97.9 90 20 130/92 95 97.9 01/03/18 04:43 97.9 77 19 140/74 98 97.9 01/03/18 00:00 98.1 71 18 139/79 94 98.1 01/02/18 20:00 97.5 72 20 162/99 98 97.5 01/02/18 16:00 Room Air 01/02/18 15:35 98.4 74 20 142/82 98 98.4 Intake and Output 01/02/18 01/03/18 19:00 07:00 Intake Total 1080 ml Output Total 1000 ml 1150 ml Balance 80 ml -1150 ml Intake Oral 1080 ml Output Urine Total 1000 ml 1150 ml Height (Feet): 5 Height (Inches): 7.00 Weight (Pounds): 146 General Appearance: WD/WN EENT: normal ENT inspection Neck: supple Cardiovascular: normal rate Respiratory/Chest: chest wall non-tender, no accessory muscle use Extremities: non-tender Edema: no edema noted Leg (L), no edema noted Leg (R) Neurologic: no motor/sensory deficits Skin: normal pigmentation José iDxon MD January 03, 2018 14:07
[2018-01-03 16:00] VITALS: BP 146/90
[2018-01-03 20:14] VITALS: BP 147/83
[2018-01-04 00:15] VITALS: BP 138/84
[2018-01-04 04:25] VITALS: BP 135/80
--- NOTE | 2018-01-04 07:30 | General Progress Note ---
Assessment/Plan Assessment/Plan ASSESSMENT AND RECOMMENDATION: 1. 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 Satellite pulmonary nodules within both the left upper and lower lobe and several pleural-based nodules consistent with metastatic neoplasm. Associated left hilar lymphadenopathy. Hypodensities in the liver nonspecific. --> At this time, this likely demonstrates lung cancer until proven otherwise, the patient is conserved --> Biopsy has been ordered to prove diagnosis, but again very typical pattern for lung cancer, likely has stage IV disease --> Further evaluation for biopsy if primary/consultants/conservator/patient are agreeable --> Can discuss with conservator as needed 2. Anemia due to underlying chronic disease. Continue to closely monitor. --> hgb goal >7 3. Coagulopathy, very mild at this time, potentially secondary to decreased p.o. intake. 4. 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 5. Dementia, unchanged at this time. Again, the patient is conserved Subjective Constitutional: Denies: no symptoms, chills, diaphoresis, fever, malaise, weakness, other HEENT: Denies: no symptoms, eye pain, blurred vision, tearing, double vision, ear pain, ear discharge, nose pain, nose congestion, throat pain, throat swelling, mouth pain, mouth swelling, other Cardiovascular: Denies: no symptoms, chest pain, edema, irregular heart rate, lightheadedness, palpitations, syncope, other Respiratory: Denies: no symptoms, cough, orthopnea, shortness of breath, SOB with excertion, SOB at rest, sputum, stridor, wheezing, other Gastrointestinal/Abdominal: Denies: no symptoms, abdomen distended, abdominal pain, black stools, tarry stools, blood in stool, constipated, diarrhea, difficulty swallowing, nausea, poor appetite, poor fluid intake, rectal bleeding , vomiting, other Genitourinary: Denies: no symptoms, burning, discharge, frequency, flank pain, hematuria, incontinence, pain, urgency, other Neurologic/Psychiatric: Denies: no symptoms, anxiety, depressed, emotional problems, headache, numbness, paresthesia, pre-existing deficit, seizure, tingling, tremors, weakness, other Endocrine: Denies: no symptoms, excessive sweating, flushing, intolerance to cold, intolerance to heat, increased hunger, increased thirst, increased urine, unexplained weight gain, unexplained weight loss, other Hematologic/Lymphatic: Denies: no symptoms, anemia, easy bleeding, easy bruising, other Allergies: Coded Allergies: No Known Allergies (Unverified , 12/30/17) Subjective has refused ct guided bx, have discussed with conservator as well Objective Last 24 Hour Vital Signs Date Time Temp Pulse Resp B/P (MAP) Pulse Ox O2 Delivery O2 Flow Rate FiO2 01/04/18 04:25 97.5 70 18 135/80 95 97.5 01/04/18 00:15 97.6 75 19 138/84 94 97.6 01/03/18 20:14 97.1 72 18 147/83 95 97.1 01/03/18 16:00 Room Air 01/03/18 16:00 97.7 68 19 146/90 97 97.7 01/03/18 12:00 98.1 67 19 147/79 94 98.1 01/03/18 12:00 Room Air 01/03/18 08:00 Room Air 01/03/18 08:00 97.9 90 20 130/92 95 97.9 Intake and Output 01/03/18 01/04/18 19:00 07:00 Intake Total 510 ml 800 ml Output Total 675 ml 1400 ml Balance -165 ml -600 ml Intake Oral 510 ml 800 ml Output Urine Total 675 ml 1400 ml Height (Feet): 5 Height (Inches): 7.00 Weight (Pounds): 146 General Appearance: alert EENT: TMs normal Neck: supple Cardiovascular: no gallop/murmur Respiratory/Chest: no respiratory distress Abdomen: normal bowel sounds Edema: no edema noted Leg (L), no edema noted Leg (R) Edema: mild edema Neurologic: no motor/sensory deficits José Dixon MD January 04, 2018 07:30
[2018-01-04 08:00] VITALS: BP 128/75
--- NOTE | 2018-01-04 11:13 | Internal Med Progress Note ---
Subjective Date of Service: January 04, 2018 Physician Name Vicente Rojas Attending Physician Antoni Son MD Current Medications Medications (Trade) Dose Ordered Sig/Calixto Route PRN Reason Start Time Stop Time Status Last Admin Dose Admin Acetaminophen (Tylenol) 650 mg Q6H PRN ORAL Mild Pain/Temp > 100.5 01/02/18 10:45 02/01/18 10:44 01/03/18 08:21 Clonidine HCl (Catapres Tab) 0.1 mg Q6HR PRN ORAL For High Blood Pressure 01/02/18 21:00 02/01/18 20:59 Lamotrigine (LaMICtal) 25 mg Q12HR ORAL 01/02/18 21:00 02/01/18 20:59 01/04/18 09:13 Risperidone (RisperDAL) 2 mg BEDTIME ORAL 01/02/18 21:00 02/01/18 20:59 01/03/18 20:06 Temazepam (Restoril) 15 mg HSPRN PRN ORAL Insomnia 01/02/18 21:00 01/09/18 20:59 Allergies: Coded Allergies: No Known Allergies (Unverified , 12/30/17) ROS Limited/Unobtainable: No Constitutional: Reports: no symptoms HEENT: Reports: no symptoms Cardiovascular: Reports: no symptoms Respiratory: Reports: shortness of breath Gastrointestinal/Abdominal: Reports: no symptoms Genitourinary: Reports: no symptoms Neurologic/Psychiatric: Reports: no symptoms Subjective 69 YO M admitted with dyspnea. Now Left upper lung mass. Cover for Int Med-Dr Son. Await biopsy of lung mass Objective Last Vital Signs Date Time Temp Pulse Resp B/P (MAP) Pulse Ox O2 Delivery O2 Flow Rate FiO2 01/04/18 08:00 97.7 78 20 128/75 95 97.7 01/03/18 16:00 Room Air 12/31/17 03:00 21 Intake and Output 01/03/18 01/04/18 19:00 07:00 Intake Total 510 ml 800 ml Output Total 675 ml 1400 ml Balance -165 ml -600 ml Intake Oral 510 ml 800 ml Output Urine Total 675 ml 1400 ml Objective General Appearance: WD/WN, no apparent distress, alert EENT: PERRL/EOMI, normal ENT inspection Neck: non-tender, normal alignment, supple, normal inspection Cardiovascular: normal peripheral pulses, normal rate, regular rhythm, no gallop/murmur, no JVD Respiratory/Chest: chest wall non-tender, respiratory distress, crackles/rales Abdomen: normal bowel sounds, non tender, soft, no organomegaly, no mass Extremities: normal range of motion, non-tender Neurologic: daycare teacher II-XII grossly normal, no motor/sensory deficits Skin: normal pigmentation, warm/dry Assessment/Plan Problem List: (1) COPD (chronic obstructive pulmonary disease) (2) HTN (hypertension) (3) Anemia, iron deficiency Assessment & Plan: Stable hemoglobin (4) Schizophrenia Assessment & Plan: Continue risperdal and lamictal per psych. D/C abilify (5) Mass of left lung Assessment & Plan: Await biopsy, however patient refused CT guided biopsy. Await conservator for consent. See onc note. Status: not improved Vicente Rojas MD January 04, 2018 11:13
[2018-01-04 11:58] LABS: BASOPHILS % (AUTO) 2.1 % (0.0-2.0); EOSINOPHILS % (AUTO) 6.4 % (0.0-3.0); HEMATOCRIT 48.4 % (42.0-52.0); HEMOGLOBIN 14.4 G/DL (14.2-18.0); LYMPHOCYTES % (AUTO) 16.3 % (20.0-45.0); MEAN CORPUSCULAR VOLUME 79 FL (80-99); MONOCYTES % (AUTO) 8.9 % (1.0-10.0); NEUTROPHILS % (AUTO) 66.3 % (45.0-75.0); PLATELET COUNT 222 K/UL (150-450); RED BLOOD COUNT 6.14 M/UL (4.70-6.10); RED CELL DISTRIBUTION WIDTH 12.5 % (11.6-14.8); WHITE BLOOD COUNT 7.8 K/UL (4.8-10.8)
[2018-01-04 12:00] VITALS: BP 149/92
[2018-01-04 12:36] LABS: ANION GAP 6 mmol/L (5-15); BLOOD UREA NITROGEN 19 mg/dL (7-18); CALCIUM 8.7 MG/DL (8.5-10.1); CARBON DIOXIDE 28 MMOL/L (21-32); CHLORIDE 101 MMOL/L (98-107); CREATININE 0.9 MG/DL (0.55-1.30); POTASSIUM 4.3 MMOL/L (3.5-5.1); SODIUM 135 MMOL/L (136-145)
--- NOTE | 2018-01-04 13:13 | General Progress Note ---
Assessment/Plan Assessment/Plan schizophrenia the pt lacks capacity to make decisions the pt allegedly has a conservator -Risperdal 2mg qhs -provide the pt with ro/st Subjective Date patient seen: January 04, 2018 Neurologic/Psychiatric: Reports: emotional problems, other - the pt is disorganized and delusional Allergies: Coded Allergies: No Known Allergies (Unverified , 12/30/17) Objective Last 24 Hour Vital Signs Date Time Temp Pulse Resp B/P (MAP) Pulse Ox O2 Delivery O2 Flow Rate FiO2 01/04/18 12:00 98.2 75 19 149/92 95 98.2 01/04/18 08:00 97.7 78 20 128/75 95 97.7 01/04/18 04:25 97.5 70 18 135/80 95 97.5 01/04/18 00:15 97.6 75 19 138/84 94 97.6 01/03/18 20:14 97.1 72 18 147/83 95 97.1 01/03/18 16:00 Room Air 01/03/18 16:00 97.7 68 19 146/90 97 97.7 Intake and Output 01/03/18 01/04/18 19:00 07:00 Intake Total 510 ml 800 ml Output Total 675 ml 1400 ml Balance -165 ml -600 ml Intake Oral 510 ml 800 ml Output Urine Total 675 ml 1400 ml Laboratory Tests 01/04/18 11:25: White Blood Count 7.8, Red Blood Count 6.14H, Hemoglobin 14.4, Hematocrit 48.4, Mean Corpuscular Volume 79L, Mean Corpuscular Hemoglobin 23.4L, Mean Corpuscular Hemoglobin Concent 29.7L, Red Cell Distribution Width 12.5, Platelet Count 222, Mean Platelet Volume 11.4H, Neutrophils (%) (Auto) 66.3, Lymphocytes (%) (Auto) 16.3L, Monocytes (%) (Auto) 8.9, Eosinophils (%) (Auto) 6.4H, Basophils (%) (Auto) 2.1H, Sodium Level 135L, Potassium Level 4.3, Chloride Level 101, Carbon Dioxide Level 28, Anion Gap 6, Blood Urea Nitrogen 19H, Creatinine 0.9, Estimat Glomerular Filtration Rate , Glucose Level 101, Calcium Level 8.7 Height (Feet): 5 Height (Inches): 7.00 Weight (Pounds): 146 General Appearance: WD/WN, no apparent distress, alert, confused Raymon Tolbert M.D. January 04, 2018 13:13
--- NOTE | 2018-01-04 15:42 | Pulmonology Progress Note ---
Assessment/Plan Problems: (1) Pancoast tumor (2) Mass of left lung Assessment/Plan might not need any biopsy titrate fio2 check tumor markers psych evaluation social service f/u ethics evaluation not many options available considering the extent of the disease Subjective ROS Limited/Unobtainable: Yes Allergies: Coded Allergies: No Known Allergies (Unverified , 12/30/17) Objective Last 24 Hour Vital Signs Date Time Temp Pulse Resp B/P (MAP) Pulse Ox O2 Delivery O2 Flow Rate FiO2 01/04/18 12:00 98.2 75 19 149/92 95 98.2 01/04/18 08:00 97.7 78 20 128/75 95 97.7 01/04/18 04:25 97.5 70 18 135/80 95 97.5 01/04/18 00:15 97.6 75 19 138/84 94 97.6 01/03/18 20:14 97.1 72 18 147/83 95 97.1 01/03/18 16:00 Room Air 01/03/18 16:00 97.7 68 19 146/90 97 97.7 Intake and Output 01/03/18 01/04/18 19:00 07:00 Intake Total 510 ml 800 ml Output Total 675 ml 1400 ml Balance -165 ml -600 ml Intake Oral 510 ml 800 ml Output Urine Total 675 ml 1400 ml General Appearance: WD/WN HEENT: normocephalic, atraumatic Respiratory/Chest: chest wall non-tender, lungs clear Cardiovascular: regular rhythm Abdomen: normal bowel sounds, soft, non tender Extremities: no cyanosis, no clubbing Laboratory Tests 01/04/18 11:25: White Blood Count 7.8, Red Blood Count 6.14H, Hemoglobin 14.4, Hematocrit 48.4, Mean Corpuscular Volume 79L, Mean Corpuscular Hemoglobin 23.4L, Mean Corpuscular Hemoglobin Concent 29.7L, Red Cell Distribution Width 12.5, Platelet Count 222, Mean Platelet Volume 11.4H, Neutrophils (%) (Auto) 66.3, Lymphocytes (%) (Auto) 16.3L, Monocytes (%) (Auto) 8.9, Eosinophils (%) (Auto) 6.4H, Basophils (%) (Auto) 2.1H, Sodium Level 135L, Potassium Level 4.3, Chloride Level 101, Carbon Dioxide Level 28, Anion Gap 6, Blood Urea Nitrogen 19H, Creatinine 0.9, Estimat Glomerular Filtration Rate , Glucose Level 101, Calcium Level 8.7 Current Medications Medications (Trade) Dose Ordered Sig/Calixto Route PRN Reason Start Time Stop Time Status Last Admin Dose Admin Acetaminophen (Tylenol) 650 mg Q6H PRN ORAL Mild Pain/Temp > 100.5 01/02/18 10:45 02/01/18 10:44 01/03/18 08:21 Clonidine HCl (Catapres Tab) 0.1 mg Q6HR PRN ORAL For High Blood Pressure 01/02/18 21:00 02/01/18 20:59 Lamotrigine (LaMICtal) 25 mg Q12HR ORAL 01/02/18 21:00 02/01/18 20:59 01/04/18 09:13 Risperidone (RisperDAL) 4 mg BEDTIME ORAL 01/04/18 21:00 02/03/18 20:59 Temazepam (Restoril) 15 mg HSPRN PRN ORAL Insomnia 01/02/18 21:00 01/09/18 20:59 Kenny Cabrera MD January 04, 2018 15:42
[2018-01-04 16:00] VITALS: BP 133/77
[2018-01-04 20:00] VITALS: BP 156/91
[2018-01-05 04:00] VITALS: BP 101/62
[2018-01-05 08:07] VITALS: BP 131/84
--- NOTE | 2018-01-05 08:59 | General Progress Note ---
Assessment/Plan Assessment/Plan ASSESSMENT AND RECOMMENDATION: 1. 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 Satellite pulmonary nodules within both the left upper and lower lobe and several pleural-based nodules consistent with metastatic neoplasm. Associated left hilar lymphadenopathy. Hypodensities in the liver nonspecific. --> At this time, this likely demonstrates lung cancer until proven otherwise, the patient is conserved --> Patient and conservator have declined biopsy at this time --> Can discuss with conservator as needed 2. Anemia due to underlying chronic disease. Continue to closely monitor. --> hgb goal >7 3. Coagulopathy, very mild at this time, potentially secondary to decreased p.o. intake. 4. 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 5. Dementia, unchanged at this time. Again, the patient is conserved Subjective Constitutional: Denies: no symptoms, chills, diaphoresis, fever, malaise, weakness, other HEENT: Denies: no symptoms, eye pain, blurred vision, tearing, double vision, ear pain, ear discharge, nose pain, nose congestion, throat pain, throat swelling, mouth pain, mouth swelling, other Cardiovascular: Denies: no symptoms, chest pain, edema, irregular heart rate, lightheadedness, palpitations, syncope, other Respiratory: Denies: no symptoms, cough, orthopnea, shortness of breath, SOB with excertion, SOB at rest, sputum, stridor, wheezing, other Gastrointestinal/Abdominal: Denies: no symptoms, abdomen distended, abdominal pain, black stools, tarry stools, blood in stool, constipated, diarrhea, difficulty swallowing, nausea, poor appetite, poor fluid intake, rectal bleeding , vomiting, other Genitourinary: Denies: no symptoms, burning, discharge, frequency, flank pain, hematuria, incontinence, pain, urgency, other Neurologic/Psychiatric: Denies: no symptoms, anxiety, depressed, emotional problems, headache, numbness, paresthesia, pre-existing deficit, seizure, tingling, tremors, weakness, other Endocrine: Denies: no symptoms, excessive sweating, flushing, intolerance to cold, intolerance to heat, increased hunger, increased thirst, increased urine, unexplained weight gain, unexplained weight loss, other Hematologic/Lymphatic: Denies: no symptoms, anemia, easy bleeding, easy bruising, other Allergies: Coded Allergies: No Known Allergies (Unverified , 12/30/17) Subjective has refused ct guided bx, conservator made aware Objective Last 24 Hour Vital Signs Date Time Temp Pulse Resp B/P (MAP) Pulse Ox O2 Delivery O2 Flow Rate FiO2 01/05/18 08:07 97.3 86 20 131/84 95 97.3 01/05/18 07:55 98.3 01/05/18 04:00 98.3 66 18 101/62 99 Room Air 98.3 01/04/18 20:00 98.6 84 18 156/91 99 Room Air 98.6 01/04/18 16:00 98.1 83 20 133/77 95 98.1 01/04/18 12:00 98.2 75 19 149/92 95 98.2 Intake and Output 01/04/18 01/05/18 19:00 07:00 Intake Total 760 ml 360 ml Output Total 1000 ml Balance 760 ml -640 ml Intake Oral 760 ml 360 ml Output Urine Total 1000 ml # Voids 4 Laboratory Tests 01/04/18 11:25: White Blood Count 7.8, Red Blood Count 6.14H, Hemoglobin 14.4, Hematocrit 48.4, Mean Corpuscular Volume 79L, Mean Corpuscular Hemoglobin 23.4L, Mean Corpuscular Hemoglobin Concent 29.7L, Red Cell Distribution Width 12.5, Platelet Count 222, Mean Platelet Volume 11.4H, Neutrophils (%) (Auto) 66.3, Lymphocytes (%) (Auto) 16.3L, Monocytes (%) (Auto) 8.9, Eosinophils (%) (Auto) 6.4H, Basophils (%) (Auto) 2.1H, Sodium Level 135L, Potassium Level 4.3, Chloride Level 101, Carbon Dioxide Level 28, Anion Gap 6, Blood Urea Nitrogen 19H, Creatinine 0.9, Estimat Glomerular Filtration Rate , Glucose Level 101, Calcium Level 8.7 Height (Feet): 5 Height (Inches): 7.00 Weight (Pounds): 146 General Appearance: alert EENT: TMs normal Neck: supple Cardiovascular: regular rhythm Respiratory/Chest: lungs clear Abdomen: soft Extremities: non-tender Edema: 1+ Leg (L), 1+ Leg (R) Kleynberg,José L. MD January 05, 2018 08:59
[2018-01-05 11:44] LABS: BASOPHILS % (AUTO) 2.3 % (0.0-2.0); EOSINOPHILS % (AUTO) 6.9 % (0.0-3.0); HEMATOCRIT 44.9 % (42.0-52.0); HEMOGLOBIN 13.1 G/DL (14.2-18.0); LYMPHOCYTES % (AUTO) 19.2 % (20.0-45.0); MEAN CORPUSCULAR VOLUME 79 FL (80-99); MONOCYTES % (AUTO) 8.8 % (1.0-10.0); NEUTROPHILS % (AUTO) 62.7 % (45.0-75.0); PLATELET COUNT 188 K/UL (150-450); RED BLOOD COUNT 5.67 M/UL (4.70-6.10); RED CELL DISTRIBUTION WIDTH 12.3 % (11.6-14.8); WHITE BLOOD COUNT 6.9 K/UL (4.8-10.8)
[2018-01-05 12:15] LABS: ANION GAP 8 mmol/L (5-15); BLOOD UREA NITROGEN 20 mg/dL (7-18); CALCIUM 8.6 MG/DL (8.5-10.1); CARBON DIOXIDE 26 MMOL/L (21-32); CHLORIDE 101 MMOL/L (98-107); CREATININE 1.1 MG/DL (0.55-1.30); POTASSIUM 4.3 MMOL/L (3.5-5.1); SODIUM 135 MMOL/L (136-145)
[2018-01-05 12:22] VITALS: BP 140/87
--- NOTE | 2018-01-05 14:30 | Pulmonology Progress Note ---
Assessment/Plan Problems: (1) Pancoast tumor (2) Mass of left lung Assessment/Plan d/w soical worker, who is going to contact the public guardian might not need any biopsy titrate fio2 check tumor markers psych evaluation social service f/u ethics evaluation not many options available considering the extent of the disease Subjective ROS Limited/Unobtainable: No Constitutional: Reports: no symptoms HEENT: Repors: no symptoms Respiratory: Reports: no symptoms Allergies: Coded Allergies: No Known Allergies (Unverified , 12/30/17) Objective Last 24 Hour Vital Signs Date Time Temp Pulse Resp B/P (MAP) Pulse Ox O2 Delivery O2 Flow Rate FiO2 01/05/18 12:22 97.7 64 20 140/87 96 97.7 01/05/18 08:54 97.3 01/05/18 08:07 97.3 86 20 131/84 95 97.3 01/05/18 07:55 98.3 01/05/18 04:00 98.3 66 18 101/62 99 Room Air 98.3 01/04/18 20:00 98.6 84 18 156/91 99 Room Air 98.6 01/04/18 16:00 98.1 83 20 133/77 95 98.1 Intake and Output 01/04/18 01/05/18 19:00 07:00 Intake Total 760 ml 360 ml Output Total 1000 ml Balance 760 ml -640 ml Intake Oral 760 ml 360 ml Output Urine Total 1000 ml # Voids 4 General Appearance: WD/WN HEENT: normocephalic, atraumatic Respiratory/Chest: chest wall non-tender, lungs clear Cardiovascular: normal peripheral pulses, normal rate Abdomen: normal bowel sounds, no organomegaly Extremities: no cyanosis Skin: no rash Laboratory Tests 01/05/18 11:30: White Blood Count 6.9, Red Blood Count 5.67, Hemoglobin 13.1L, Hematocrit 44.9, Mean Corpuscular Volume 79L, Mean Corpuscular Hemoglobin 23.2L, Mean Corpuscular Hemoglobin Concent 29.3L, Red Cell Distribution Width 12.3, Platelet Count 188, Mean Platelet Volume 9.5, Neutrophils (%) (Auto) 62.7, Lymphocytes (%) (Auto) 19.2L, Monocytes (%) (Auto) 8.8, Eosinophils (%) (Auto) 6.9H, Basophils (%) (Auto) 2.3H, Sodium Level 135L, Potassium Level 4.3, Chloride Level 101, Carbon Dioxide Level 26, Anion Gap 8, Blood Urea Nitrogen 20H, Creatinine 1.1, Estimat Glomerular Filtration Rate , Glucose Level 98, Calcium Level 8.6 Current Medications Medications (Trade) Dose Ordered Sig/Calixto Route PRN Reason Start Time Stop Time Status Last Admin Dose Admin Acetaminophen (Tylenol) 650 mg Q6H PRN ORAL Mild Pain/Temp > 100.5 01/02/18 10:45 02/01/18 10:44 01/05/18 07:55 Clonidine HCl (Catapres Tab) 0.1 mg Q6HR PRN ORAL For High Blood Pressure 01/02/18 21:00 02/01/18 20:59 Lamotrigine (LaMICtal) 25 mg Q12HR ORAL 01/02/18 21:00 02/01/18 20:59 01/05/18 07:55 Risperidone (RisperDAL) 4 mg BEDTIME ORAL 01/04/18 21:00 02/03/18 20:59 01/04/18 21:40 Temazepam (Restoril) 15 mg HSPRN PRN ORAL Insomnia 01/02/18 21:00 01/09/18 20:59 Kenny Cabrera MD January 05, 2018 14:30
--- NOTE | 2018-01-05 14:30 | General Progress Note ---
Assessment/Plan Assessment/Plan schizophrenia the pt lacks capacity to make decisions the pt allegedly has a conservator -Risperdal 2mg qhs -provide the pt with ro/st Subjective Date patient seen: January 05, 2018 Neurologic/Psychiatric: Reports: anxiety, depressed, emotional problems Allergies: Coded Allergies: No Known Allergies (Unverified , 12/30/17) Objective Last 24 Hour Vital Signs Date Time Temp Pulse Resp B/P (MAP) Pulse Ox O2 Delivery O2 Flow Rate FiO2 01/05/18 12:22 97.7 64 20 140/87 96 97.7 01/05/18 08:54 97.3 01/05/18 08:07 97.3 86 20 131/84 95 97.3 01/05/18 07:55 98.3 01/05/18 04:00 98.3 66 18 101/62 99 Room Air 98.3 01/04/18 20:00 98.6 84 18 156/91 99 Room Air 98.6 01/04/18 16:00 98.1 83 20 133/77 95 98.1 Intake and Output 01/04/18 01/05/18 19:00 07:00 Intake Total 760 ml 360 ml Output Total 1000 ml Balance 760 ml -640 ml Intake Oral 760 ml 360 ml Output Urine Total 1000 ml # Voids 4 Laboratory Tests 01/05/18 11:30: White Blood Count 6.9, Red Blood Count 5.67, Hemoglobin 13.1L, Hematocrit 44.9, Mean Corpuscular Volume 79L, Mean Corpuscular Hemoglobin 23.2L, Mean Corpuscular Hemoglobin Concent 29.3L, Red Cell Distribution Width 12.3, Platelet Count 188, Mean Platelet Volume 9.5, Neutrophils (%) (Auto) 62.7, Lymphocytes (%) (Auto) 19.2L, Monocytes (%) (Auto) 8.8, Eosinophils (%) (Auto) 6.9H, Basophils (%) (Auto) 2.3H, Sodium Level 135L, Potassium Level 4.3, Chloride Level 101, Carbon Dioxide Level 26, Anion Gap 8, Blood Urea Nitrogen 20H, Creatinine 1.1, Estimat Glomerular Filtration Rate , Glucose Level 98, Calcium Level 8.6 Height (Feet): 5 Height (Inches): 7.00 Weight (Pounds): 146 General Appearance: no apparent distress, alert, confused Farhadi,Pantea M.D. January 05, 2018 14:30
[2018-01-05 15:41] VITALS: BP 156/88
[2018-01-05 19:44] VITALS: BP 139/79
--- NOTE | 2018-01-05 23:23 | Internal Med Progress Note ---
Subjective Physician Name Antoni Son Attending Physician Antoni Son MD Current Medications Medications (Trade) Dose Ordered Sig/Calixto Route PRN Reason Start Time Stop Time Status Last Admin Dose Admin Acetaminophen (Tylenol) 650 mg Q6H PRN ORAL Mild Pain/Temp > 100.5 01/02/18 10:45 02/01/18 10:44 01/05/18 07:55 Clonidine HCl (Catapres Tab) 0.1 mg Q6HR PRN ORAL For High Blood Pressure 01/02/18 21:00 02/01/18 20:59 Lamotrigine (LaMICtal) 25 mg Q12HR ORAL 01/02/18 21:00 02/01/18 20:59 01/05/18 21:39 Risperidone (RisperDAL) 4 mg BEDTIME ORAL 01/04/18 21:00 02/03/18 20:59 01/05/18 21:38 Temazepam (Restoril) 15 mg HSPRN PRN ORAL Insomnia 01/02/18 21:00 01/09/18 20:59 Allergies: Coded Allergies: No Known Allergies (Unverified , 12/30/17) Subjective awake, alert, responsive, ambulating in hallway. Objective Last Vital Signs Date Time Temp Pulse Resp B/P (MAP) Pulse Ox O2 Delivery O2 Flow Rate FiO2 01/05/18 20:00 Room Air 01/05/18 19:44 97.6 79 18 139/79 95 97.6 12/31/17 03:00 21 Laboratory Tests Test 01/05/18 11:30 White Blood Count 6.9 K/UL (4.8-10.8) Red Blood Count 5.67 M/UL (4.70-6.10) Hemoglobin 13.1 G/DL (14.2-18.0) L Hematocrit 44.9 % (42.0-52.0) Mean Corpuscular Volume 79 FL (80-99) L Mean Corpuscular Hemoglobin 23.2 PG (27.0-31.0) L Mean Corpuscular Hemoglobin Concent 29.3 G/DL (32.0-36.0) L Red Cell Distribution Width 12.3 % (11.6-14.8) Platelet Count 188 K/UL (150-450) Mean Platelet Volume 9.5 FL (6.5-10.1) Neutrophils (%) (Auto) 62.7 % (45.0-75.0) Lymphocytes (%) (Auto) 19.2 % (20.0-45.0) L Monocytes (%) (Auto) 8.8 % (1.0-10.0) Eosinophils (%) (Auto) 6.9 % (0.0-3.0) H Basophils (%) (Auto) 2.3 % (0.0-2.0) H Sodium Level 135 MMOL/L (136-145) L Potassium Level 4.3 MMOL/L (3.5-5.1) Chloride Level 101 MMOL/L (98-107) Carbon Dioxide Level 26 MMOL/L (21-32) Anion Gap 8 mmol/L (5-15) Blood Urea Nitrogen 20 mg/dL (7-18) H Creatinine 1.1 MG/DL (0.55-1.30) Estimat Glomerular Filtration Rate mL/min (>60) Glucose Level 98 MG/DL (74-106) Calcium Level 8.6 MG/DL (8.5-10.1) Intake and Output 01/04/18 01/05/18 19:00 07:00 Intake Total 760 ml 360 ml Output Total 1000 ml Balance 760 ml -640 ml Intake Oral 760 ml 360 ml Output Urine Total 1000 ml # Voids 4 Objective General: No acute distress, awake and alert HEENT: NCAT, sclera anicteric, PERRL, EOMI. Neck: Supple, no significant jugular venous distention, Lungs: Good inspiratory effort, no accessory muscle use, clear to auscultation bilaterally, no Wheeze or Rales. Heart: Regular rate and rhythm, normal S1/S2, no murmurs Abdomen: soft, nontender, nondistended. Normoactive bowel sounds. / Rectal: Refused and deferred. Extremities: No Cyanosis , clubbing or edema. Neuro: A&O x 3, Able to move all extremities t Assessment/Plan Assessment/Plan 1. 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 Satellite pulmonary nodules within both the left upper and lower lobe and several pleural-based nodules consistent with metastatic neoplasm. Associated left hilar lymphadenopathy. Hypodensities in the liver nonspecific. 2. Anemia due to underlying chronic disease. 3. Coagulopathy, 4. 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 5. Dementia 6. COPD 7. Schizophrenia Plan: waiting for Lung Biopsy Monitor Labs Ambulation F/U with Oncologist recommendation Full code SCD Antoni Son MD January 05, 2018 23:23
[2018-01-06 00:19] VITALS: BP 134/82
[2018-01-06 04:55] VITALS: BP 138/85
--- NOTE | 2018-01-06 07:41 | General Progress Note ---
Assessment/Plan Assessment/Plan ASSESSMENT AND RECS: 1. 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 Satellite pulmonary nodules within both the left upper and lower lobe and several pleural-based nodules consistent with metastatic neoplasm. Associated left hilar lymphadenopathy. Hypodensities in the liver nonspecific. --> At this time, this likely demonstrates lung cancer until proven otherwise, the patient is conserved --> Patient and conservator have declined biopsy 2. Anemia due to underlying chronic disease. Continue to closely monitor. --> anemia w/u has been reviewed --> hgb goal >7 3. Coagulopathy, very mild at this time, potentially secondary to decreased p.o. intake. 4. 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 5. Dementia, unchanged at this time. Again, the patient is conserved Subjective Constitutional: Denies: no symptoms, chills, diaphoresis, fever, malaise, weakness, other HEENT: Denies: no symptoms, eye pain, blurred vision, tearing, double vision, ear pain, ear discharge, nose pain, nose congestion, throat pain, throat swelling, mouth pain, mouth swelling, other Cardiovascular: Denies: no symptoms, chest pain, edema, irregular heart rate, lightheadedness, palpitations, syncope, other Respiratory: Denies: no symptoms, cough, orthopnea, shortness of breath, SOB with excertion, SOB at rest, sputum, stridor, wheezing, other Gastrointestinal/Abdominal: Denies: no symptoms, abdomen distended, abdominal pain, black stools, tarry stools, blood in stool, constipated, diarrhea, difficulty swallowing, nausea, poor appetite, poor fluid intake, rectal bleeding , vomiting, other Genitourinary: Denies: no symptoms, burning, discharge, frequency, flank pain, hematuria, incontinence, pain, urgency, other Neurologic/Psychiatric: Denies: no symptoms, anxiety, depressed, emotional problems, headache, numbness, paresthesia, pre-existing deficit, seizure, tingling, tremors, weakness, other Endocrine: Denies: no symptoms, excessive sweating, flushing, intolerance to cold, intolerance to heat, increased hunger, increased thirst, increased urine, unexplained weight gain, unexplained weight loss, other Hematologic/Lymphatic: Denies: no symptoms, anemia, easy bleeding, easy bruising, other Allergies: Coded Allergies: No Known Allergies (Unverified , 12/30/17) Subjective very agitated overnight, no fevers or chills noted Objective Last 24 Hour Vital Signs Date Time Temp Pulse Resp B/P (MAP) Pulse Ox O2 Delivery O2 Flow Rate FiO2 01/06/18 04:55 97.6 62 20 138/85 97 Room Air 97.6 01/06/18 04:00 Room Air 01/06/18 00:19 97.0 65 20 134/82 97 Room Air 97.0 01/06/18 00:00 Room Air 01/05/18 20:00 Room Air 01/05/18 19:44 97.6 79 18 139/79 95 97.6 01/05/18 15:41 98.2 88 20 156/88 97 98.2 01/05/18 12:22 97.7 64 20 140/87 96 97.7 01/05/18 08:54 97.3 01/05/18 08:07 97.3 86 20 131/84 95 97.3 01/05/18 07:55 98.3 Intake and Output 01/05/18 01/06/18 19:00 07:00 Intake Total 1200 ml Output Total 1000 ml Balance 200 ml Intake Oral 1200 ml Output Urine Total 1000 ml # Voids 3 # Bowel Movements 1 Laboratory Tests 01/05/18 11:30: White Blood Count 6.9, Red Blood Count 5.67, Hemoglobin 13.1L, Hematocrit 44.9, Mean Corpuscular Volume 79L, Mean Corpuscular Hemoglobin 23.2L, Mean Corpuscular Hemoglobin Concent 29.3L, Red Cell Distribution Width 12.3, Platelet Count 188, Mean Platelet Volume 9.5, Neutrophils (%) (Auto) 62.7, Lymphocytes (%) (Auto) 19.2L, Monocytes (%) (Auto) 8.8, Eosinophils (%) (Auto) 6.9H, Basophils (%) (Auto) 2.3H, Sodium Level 135L, Potassium Level 4.3, Chloride Level 101, Carbon Dioxide Level 26, Anion Gap 8, Blood Urea Nitrogen 20H, Creatinine 1.1, Estimat Glomerular Filtration Rate , Glucose Level 98, Calcium Level 8.6 Height (Feet): 5 Height (Inches): 7.00 Weight (Pounds): 146 General Appearance: alert EENT: TMs normal Neck: supple Cardiovascular: normal rate Respiratory/Chest: lungs clear Abdomen: non tender Extremities: normal inspection Edema: 1+ Leg (L), 1+ Leg (R) Edema: mild edema Neurologic: no motor/sensory deficits José Dixon MD January 06, 2018 07:41
[2018-01-06 08:00] VITALS: BP 152/76
[2018-01-06 12:00] VITALS: BP 160/88
--- NOTE | 2018-01-06 14:33 | General Progress Note ---
Progress Note Progress Note At the request of the psychiatric social worker supervisor a hospital Bioethics Consult was provided for this patient. Mr. 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 Dr. Cabrera and oncologist Dr. Dixon have determined that his prognosis is grave and that aggressive treatment would be futile. I discussed the patient in detail with the psychiatric social worker supervisor Ramandeep Carrasquillo. It is our sense that he has metastatic cancer and other multiple serious chronic conditions that will likely lead to his demise and that further aggressive care will be futile and that natural will be the best outcome. We feel that it would be in the patient's best interest to discontinue care that is artificially prolonging his life without any improvement in the quality if life. The risk of continuing aggressive care outweighs any possible benefit. Do Not Resuscitate/Do Not intubate Status with comfort-based care status would be completely appropriate for this patient. Hospice consult should be requested and he should return to the care home care facility. Luis Melton M.D. Luis Melton MD January 06, 2018 14:33
--- NOTE | 2018-01-06 15:29 | Pulmonology Progress Note ---
Assessment/Plan Problems: (1) Pancoast tumor (2) Mass of left lung Assessment/Plan d/w soical worker, who is going to contact the public guardian might not need any biopsy titrate fio2 check tumor markers psych evaluation social service f/u ethics evaluation not many options available considering the extent of the disease forms for public guardian filled up. Ramandeep to f/u with them Subjective ROS Limited/Unobtainable: No Constitutional: Reports: no symptoms HEENT: Repors: no symptoms Respiratory: Reports: no symptoms Allergies: Coded Allergies: No Known Allergies (Unverified , 12/30/17) Objective Last 24 Hour Vital Signs Date Time Temp Pulse Resp B/P (MAP) Pulse Ox O2 Delivery O2 Flow Rate FiO2 01/06/18 12:00 97.3 74 24 160/88 97 97.3 01/06/18 08:00 97.7 84 16 152/76 97 97.7 01/06/18 04:55 97.6 62 20 138/85 97 Room Air 97.6 01/06/18 04:00 Room Air 01/06/18 00:19 97.0 65 20 134/82 97 Room Air 97.0 01/06/18 00:00 Room Air 01/05/18 20:00 Room Air 01/05/18 19:44 97.6 79 18 139/79 95 97.6 01/05/18 15:41 98.2 88 20 156/88 97 98.2 Intake and Output 01/05/18 01/06/18 19:00 07:00 Intake Total 1200 ml Output Total 1000 ml Balance 200 ml Intake Oral 1200 ml Output Urine Total 1000 ml # Voids 3 # Bowel Movements 1 General Appearance: WD/WN HEENT: normocephalic, atraumatic Respiratory/Chest: chest wall non-tender, lungs clear Cardiovascular: normal peripheral pulses, normal rate Abdomen: normal bowel sounds, soft, non tender Genitourinary: normal external genitalia Skin: no rash, no lesions Current Medications Medications (Trade) Dose Ordered Sig/Calixto Route PRN Reason Start Time Stop Time Status Last Admin Dose Admin Acetaminophen (Tylenol) 650 mg Q6H PRN ORAL Mild Pain/Temp > 100.5 01/02/18 10:45 02/01/18 10:44 01/05/18 07:55 Clonidine HCl (Catapres Tab) 0.1 mg Q6HR PRN ORAL For High Blood Pressure 01/02/18 21:00 02/01/18 20:59 Lamotrigine (LaMICtal) 25 mg Q12HR ORAL 01/02/18 21:00 02/01/18 20:59 01/06/18 09:53 Risperidone (RisperDAL) 4 mg BEDTIME ORAL 01/04/18 21:00 02/03/18 20:59 01/05/18 21:38 Temazepam (Restoril) 15 mg HSPRN PRN ORAL Insomnia 01/02/18 21:00 01/09/18 20:59 Kenny Cabrera MD January 06, 2018 15:29
--- NOTE | 2018-01-06 15:57 | General Progress Note ---
Assessment/Plan Assessment/Plan schizophrenia the pt lacks capacity to make decisions the pt allegedly has a conservator -Risperdal 2mg qhs -provide the pt with ro/st Subjective Date patient seen: January 06, 2018 Neurologic/Psychiatric: Reports: anxiety, depressed, emotional problems Allergies: Coded Allergies: No Known Allergies (Unverified , 12/30/17) Objective Last 24 Hour Vital Signs Date Time Temp Pulse Resp B/P (MAP) Pulse Ox O2 Delivery O2 Flow Rate FiO2 01/06/18 12:00 97.3 74 24 160/88 97 97.3 01/06/18 08:00 97.7 84 16 152/76 97 97.7 01/06/18 04:55 97.6 62 20 138/85 97 Room Air 97.6 01/06/18 04:00 Room Air 01/06/18 00:19 97.0 65 20 134/82 97 Room Air 97.0 01/06/18 00:00 Room Air 01/05/18 20:00 Room Air 01/05/18 19:44 97.6 79 18 139/79 95 97.6 Intake and Output 01/05/18 01/06/18 19:00 07:00 Intake Total 1200 ml Output Total 1000 ml Balance 200 ml Intake Oral 1200 ml Output Urine Total 1000 ml # Voids 3 # Bowel Movements 1 Height (Feet): 5 Height (Inches): 7.00 Weight (Pounds): 146 General Appearance: WD/WN, no apparent distress, alert Raymon Tolbert M.D. January 06, 2018 15:57
[2018-01-06 16:00] VITALS: BP 134/90
--- NOTE | 2018-01-06 22:45 | Internal Med Progress Note ---
Subjective Physician Name Antoni Son Attending Physician Antoni Son MD Allergies: Coded Allergies: No Known Allergies (Unverified , 12/30/17) Subjective awake, alert, responsive, NAD. Objective Last Vital Signs Date Time Temp Pulse Resp B/P (MAP) Pulse Ox O2 Delivery O2 Flow Rate FiO2 01/06/18 16:00 98.1 83 20 134/90 96 98.1 01/06/18 04:55 Room Air 12/31/17 03:00 21 Intake and Output 01/05/18 01/06/18 19:00 07:00 Intake Total 1200 ml Output Total 1000 ml Balance 200 ml Intake Oral 1200 ml Output Urine Total 1000 ml # Voids 3 # Bowel Movements 1 Objective General: No acute distress, awake and alert HEENT: NCAT, sclera anicteric, PERRL, EOMI. Neck: Supple, no significant jugular venous distention, Lungs: Good inspiratory effort, no accessory muscle use, clear to auscultation bilaterally, no Wheeze or Rales. Heart: Regular rate and rhythm, normal S1/S2, no murmurs Abdomen: soft, nontender, nondistended. Normoactive bowel sounds. / Rectal: Refused and deferred. Extremities: No Cyanosis , clubbing or edema. Neuro: A&O x 3, Able to move all extremities t Assessment/Plan Assessment/Plan 1. 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 Satellite pulmonary nodules within both the left upper and lower lobe and several pleural-based nodules consistent with metastatic neoplasm. Associated left hilar lymphadenopathy. Hypodensities in the liver nonspecific. 2. Anemia due to underlying chronic disease. 3. Coagulopathy, 4. 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 5. Dementia 6. COPD 7. Schizophrenia Plan: waiting for Lung Biopsy Monitor Labs Ambulation F/U with Oncologist recommendation Full code SCD community service worker contact the public guardian DC to SNF today. Antoni Son MD January 06, 2018 22:45
--- NOTE | 2018-01-07 14:03 | Discharge Summary ---
Discharge Summary Discharge Summary Discharge Summary DATE OF ADMISSION: 12/30/2017 DATE OF DISCHARGE: 01/06/2018 CONSULTANTS: Dr. Kenny Melton BRIEF HOSPITAL COURSE: Patient is a 72-year-old -[place] male, who presented for chief complaint of evaluation of lung mass. Patient was diagnosed with left upper lobe lung mass and was being followed by oncologist. He was sent to the emergency room for PET scan for staging. Patient has schizophrenia and is on unreliable historian. He has medical history significant for COPD, hypertension , iron deficiency anemia, schizophrenia. On evaluation at ED, chest x-ray showed suspected left upper lobe pneumonia, mass not excluded. Chest CT with bronchogenic carcinoma in the left upper lobe suspected with a 5-6 cm mass. There were satellite pulmonary nodules and several pleural-based nodules consistent with metastatic neoplasm. There was associated left hilar lymphadenopathy. There was hypodensity noted on liver, metastatic disease not excluded. 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 He was admitted for evaluation of the lung mass. He was given pulmonary support. He underwent psychiatric evaluation. Patient was disorganized and delusional. He was given Risperdal daily at bedtime. He was ordered to have lung biopsy. Patient lacks capacity to make decisions and has a Conservator. Bioethics consult was done. Patient's prognosis is grave and aggressive treatment would be futile. It is in the patient's best interest to discontinue care that is artificially prolonging his life without any improvement in the quality of life. Risk of continuing aggressive care outweighs any possible benefit. DO NOT RESUSCITATE/DO NOT INTUBATE status with comfort care status would be completely appropriate. He was recommended hospice. He was eventually discharged back to the senior living. 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 DISCHARGE MEDICATIONS: Refer to Discharge Medication List. I have been assigned to dictate discharge summary on this account, and I was not involved in the patient's management. Ginette Hackett NP January 07, 2018 14:03
== END 2018-01-06 18:44 | DRG 136 ==
LOC: EDBD 23:06 → EMR 23:27 → 4W 23:38 → EDBEDREQ 12-31 01:50
DX: C34.12 Malignant neoplasm of upper lobe, left bronchus or lung (principal); D68.9 Coagulation defect, unspecified; C78.00 Secondary malignant neoplasm of unspecified lung; E22.2 Syndrome of inappropriate secretion of antidiuretic hormone; F03.90 Unspecified dementia, unspecified severity, without behavioral disturbance, psychotic disturbance, mood disturbance, and anxiety; C78.2 Secondary malignant neoplasm of pleura; J44.9 Chronic obstructive pulmonary disease, unspecified; D63.8 Anemia in other chronic diseases classified elsewhere; F20.9 Schizophrenia, unspecified; F32.9 Major depressive disorder, single episode, unspecified; I10 Essential (primary) hypertension
CPT/HCPCS: 36415; 71045; 71250; 80048; 80053; 81003; 82550; 83605; 83880; 84484; 85025; 85610; 85730; 87040; 87081; 93005; 94640; 94664; 99285